=== PATIENT | female | born 1935 | race Caucasian/White ===

== ENCOUNTER 2016-09-18 19:57 | Emergency (ER) | payer BC ==
[2016-09-18 20:03] VITALS: BP 197/100; PULSE 81; TEMP 97.8; BMI 30.1
--- NOTE | 2016-09-18 21:13 | PDOC ---
History of Present Illness <Carmina Nash - Last Filed: 09/18/16 21:16> <Magda Archibald - Last Filed: 09/18/16 23:00> - General Chief Complaint: Chest Pain Stated Complaint: CHEST - History of Present Illness Initial Comments: 09/18/16 22:57 Patient is an 81 year old female with significant medical hx of HTN and cardiac catheterization 10 years ago with some arteriosclerotic disease who is presenting to the ED with intermittent left sided chest pain for a week. Her chest pain is non-radiating and not associated with shortness of breath. The patient describes her pain as annoying; she states that it is not a pressure. Denies diaphoresis, dyspnea, nausea, vomiting, headache, fever, chills. The patient recently received an echocardiogram that was found WNL. Social Hx: Tobacco use for 59 years, quit 4 years ago. PMD: Chris Jacobsen MD (Magda Archibald) Past History - Past Medical History Cardiac Disorders: Yes HTN: Yes Hypercholesterolemia: Yes - Surgical History Abdominal Surgery: Yes (hernia) - Psycho/Social/Smoking Cessation Hx Suicidal Ideation: No Smoking History: Former smoker Have you smoked in the past 12 months: No If you are a former smoker, when did you quit?: 2006 Information on smoking cessation initiated: No <Carmina Nash - Last Filed: 09/18/16 21:16> <Magda Archibald - Last Filed: 09/18/16 23:00> - Past Medical History Allergies/Adverse Reactions: Allergies Allergy/AdvReac Type Severity Reaction Status Date / Time No Known Allergies Allergy Verified 09/18/16 20:03 Review of Systems <Jordan Nashalexia Tinoco - Last Filed: 09/18/16 21:16> <Magda Archibald - Last Filed: 09/18/16 23:00> - Review of Systems Comments:: 09/18/16 22:59 CONSTITUTIONAL: Absent: fever, chills, diaphoresis, generalized weakness, malaise, loss of appetite HEENT: Absent: rhinorrhea, nasal congestion, throat pain, throat swelling, difficulty swallowing, mouth swelling, ear pain, eye pain, visual changes CARDIOVASCULAR: Present: chest pain Absent: syncope, palpitations, irregular heart rate, lightheadedness, peripheral edema RESPIRATORY: Absent: cough, shortness of breath, dyspnea with exertion, orthopnea, wheezing, stridor, hemoptysis GASTROINTESTINAL: Absent: abdominal pain, abdominal distension, nausea, vomiting, diarrhea, constipation, melena, hematochezia GENITOURINARY: Absent: dysuria, frequency, urgency, hesitancy, hematuria, flank pain, genital pain MUSCULOSKELETAL: Absent: myalgia, arthralgia, joint swelling SKIN: Absent: rash, itching, pallor HEMATOLOGIC/IMMUNOLOGIC: Absent: easy bleeding, easy bruising, lymphadenopathy, frequent infections ENDOCRINE: Absent: unexplained weight gain, unexplained weight loss, heat intolerance, cold intolerance NEUROLOGIC: Absent: headache, focal weakness or paresthesia, dizziness, unsteady gait, seizure, mental status changes, bladder or bowel incontinence. PSYCHIATRIC: Absent: anxiety, depression, suicidal or homicidal ideation, hallucinations (Magda Archibald) *Physical Exam <Carmina aNsh - Last Filed: 09/18/16 21:16> <Magda Archibald - Last Filed: 09/18/16 23:00> - Vital Signs Last Vital Signs Temp Pulse Resp BP Pulse Ox 97.8 F 81 18 197/100 98 09/18/16 19:59 09/18/16 19:59 09/18/16 19:59 09/18/16 19:59 09/18/16 19:59 - Physical Exam Comments: 09/18/16 22:59 GENERAL: Well developed, well nourished. Awake and alert. No acute distress. HEENT: Normocephalic, atraumatic. PERRLA, EOMI. No conjunctival pallor. Sclera are non- icteric. Moist mucous membranes. Oropharynx is clear. NECK: Supple. Full ROM. No JVD. Carotid pulses 2+ and symmetric, without bruits. No thyromegaly. No lymphadenopathy. CARDIOVASCULAR: Regular rate and rhythm. No murmurs, rubs, or gallops. Distal pulses are 2+ and symmetric. PULMONARY: No evidence of respiratory distress. Lungs clear to auscultation bilaterally. No wheezing, rales or rhonchi. ABDOMINAL: Protuberant. Soft. Non-tender. Non-distended. No rebound or guarding. No organomegaly. Normoactive bowel sounds. MUSCULOSKELETAL: Normal range of motion at all joints. No bony deformities or tenderness. No CVA tenderness. EXTREMITIES: Mild pedal edema. No cyanosis. No clubbing. No calf tenderness. SKIN: Warm and dry. Normal capillary refill. No rashes. No jaundice. NEUROLOGICAL: Alert, awake, appropriate. Cranial nerves 2-12 intact. Normal speech. PSYCHIATRIC: Cooperative. Good eye contact. Appropriate mood and affect. (Magda Archibald) ED Treatment Course - LABORATORY CBC & Chemistry Diagram: 09/18/16 21:40 09/18/16 21:40 <Magda Archibald - Last Filed: 09/18/16 23:00> - ADDITIONAL ORDERS Additional order review: Laboratory Results 09/18/16 09/18/16 21:40 21:40 Sodium 145 Potassium 4.1 Chloride 107 Carbon Dioxide 31 Anion Gap 7 L BUN 15 Creatinine 0.5 L Creat Clearance w eGFR > 60 Random Glucose 82 Calcium 9.0 Total Bilirubin 0.4 AST 7 L ALT 12 Alkaline Phosphatase 97 Creatine Kinase 59 Troponin I < 0.02 B-Natriuretic Peptide 213.48 Total Protein 6.8 Albumin 3.8 09/18/16 21:40 RBC 4.51 MCV 84.0 MCHC 33.4 RDW 15.2 MPV 9.0 Neutrophils % 72.3 Lymphocytes % 18.2 Monocytes % 7.1 Eosinophils % 2.1 Basophils % 0.3 *DC/Admit/Observation/Transfer <Carmina Nash - Last Filed: 09/18/16 21:16> <Magda Archibald - Last Filed: 09/18/16 23:00> Diagnosis at time of Disposition: Chest pain Qualifiers: Chest pain type: unspecified Qualified Code(s): R07.9 - Chest pain, unspecified - Discharge Dispostion Disposition: LEFT BEFORE MED EVAL, [facility] Condition at time of disposition: Stable - Referrals Referrals: Mars Cardona MD [Primary Care Provider] - - Patient Instructions Printed Discharge Instructions: DI for Atypical Chest Pain Additional Instructions: Dr Cardona will take you to [facility] - Attestations Scribe Attestion: 09/18/16 23:00 Documentation prepared by Magda Archibald, acting as medical art therapist for Carmina Nash MD. (Magda Archibald)
[2016-09-18] MEDS ORDERED: ASPIRIN 81 MG CHEWABLE TABLETS PO ONE (21:19)
[2016-09-18] MEDS ORDERED: METOPROLOL SUCCINATE 25 MG TAB.SR.24H (FP) PO ONE (21:20)
[2016-09-18] MEDS ORDERED: ASPIRIN 81 MG CHEWABLE TABLETS ONE (21:21)
[2016-09-18] MEDS ORDERED: METOPROLOL TARTRATE 25 MG TABLET (FP) ONE (21:21)
[2016-09-18 21:57] LABS: BASOPHIL 0.3 % (0-2.0); EOSINOPHIL 2.1 % (0-4.5); MCH 28.1 pg (25.7-33.7); MCHC 33.4 g/dl (32.0-36.0); NEUTROPHILS 72.3 % (42.8-82.8); PLATELET COUNT 242 K/MM3 (134-434); RDW 15.2 % (11.6-15.6); WHITE BLOOD COUNT 7.2 K/mm3 (4.0-10.0)
[2016-09-18 22:19] LABS: ALBUMIN 3.8 g/dl (3.4-5.0); ANION GAP 7 (8-16); BILIRUBIN,TOTAL 0.4 mg/dL (0.2-1.0); CO2 31 mmol/L (21-32); CREATININE 0.5 mg/dL (0.55-1.02); GLUCOSE,RANDOM 82 mg/dL (74-106); SGOT/AST 7 U/L (15-37); SGPT/ALT 12 U/L (12-78); TOT PROT 6.8 g/dl (6.4-8.2)
[2016-09-18 22:23] LABS: ALK PHOS 97 U/L (45-117); TROPONIN I < 0.02 ng/ml (0.00-0.05)
--- NOTE | 2016-09-26 17:26 | EKG ---
Test Reason : Blood Pressure : / mmHG Vent. Rate : 066 BPM Atrial Rate : 066 BPM P-R Int : 146 ms QRS Dur : 148 ms QT Int : 418 ms P-R-T Axes : 041 -24 -01 degrees QTc Int : 438 ms NORMAL SINUS RHYTHM WITH SINUS ARRHYTHMIA RIGHT BUNDLE BRANCH BLOCK ANTEROSEPTAL INFARCT , AGE UNDETERMINED ABNORMAL ECG WHEN COMPARED WITH ECG OF 06-MAR-2005 14:46, RIGHT BUNDLE BRANCH BLOCK IS NOW PRESENT ANTEROSEPTAL INFARCT IS NOW PRESENT Confirmed by NELSON ARCOS MD ([id number]) on 09/26/2016 5:25:57 PM Referred By: Confirmed By:NELSON ARCOS MD
== END 2016-09-18 21:31 | disposition left against medical advice (07) ==
LOC: JER 19:57
DX: Z53.21 Procedure and treatment not carried out due to patient leaving prior to being seen by health care provider (principal)
CPT/HCPCS: 36415; 71020-TC; 80053; 82550; 83880; 84484; 85025; 93005; 93010; 99281-25

== ENCOUNTER 2019-01-05 17:05 | Inpatient (IN) | payer BC ==
--- NOTE | 2019-01-05 18:19 | PDOC ---
History of Present Illness - General Chief Complaint: Pain, Acute Stated Complaint: LEFT SHOULDER PAIN Time Seen by Provider: 01/05/19 18:04 - History of Present Illness Initial Comments: 01/05/19 18:10 83 yo F with h/o COPD, ASHD, Cardiac Catherization ( x 1 years ago), Diastolic CHF, HTN who p/w left sided chest pain. Patient reports 2 days of intermittent, left sided chest pain/discomfort with exertion and at rest. Pain non-pleuritic, radiating to left sided shoulder, and neck, resolving spontaneously after 15-20 minutes. Last occurrence of pain on arrival to ED, now resolved. No identifiable triggers, or alleviators. No other associated complaints. Reports intermittent palpitations x 2 years with exertion. Follows with cardiology Dr. Peterson. Per Dr. Peterson patient with h/o recurrent left sided chest pain of similar nature. Last cardiac cath x 1 year ago, with absent pathologic findings. EKg with chronic RBBB. Patient denies GARY, vision change, cough, wheezing, orthopena, PND, leg swelling /pain, N/V, F,C, SOB, urinary complaints, hematuria, BPR, abdominal pain, diarrhea, constipation, lightheadedness, weakness, sensory changes. PMHx: as noted above. Denies h/o MD, stent placement, CABG ROS: as noted SHx: Distant tobacco use. Denies Etoh, IVDA. Allergies: NKDA Past History - Past Medical History Allergies/Adverse Reactions: Allergies Allergy/AdvReac Type Severity Reaction Status Date / Time No Known Allergies Allergy Verified 01/05/19 17:17 Home Medications: Ambulatory Orders Amlodipine Besylate [Norvasc -] 5 mg PO DAILY 01/05/19 Aspirin [ASA -] 81 mg PO DAILY 01/05/19 Atorvastatin Calcium [Lipitor] 10 mg PO HS 01/05/19 Mirtazapine [Remeron -] 7.5 mg PO DAILY 01/05/19 Zolpidem Tartrate [Ambien] 10 mg PO HS 01/05/19 Cardiac Disorders: Yes (leaky valve) COPD: No HTN: Yes Hypercholesterolemia: Yes Psychiatric Problems: Yes (anxiety, depression) - Surgical History Abdominal Surgery: Yes (hernia) - Suicide/Smoking/Psychosocial Hx Smoking History: Former smoker Have you smoked in the past 12 months: No If you are a former smoker, when did you quit?: 2006 Information on smoking cessation initiated: No Review of Systems - Review of Systems Comments:: 01/05/19 18:24 GENERAL/CONSTITUTIONAL: No fever or chills. No weakness. HEAD, EYES, EARS, NOSE AND THROAT: No change in vision. No ear pain or discharge. No sore throat. CARDIOVASCULAR: + chest pain. absent shortness of breath RESPIRATORY: No cough, wheezing, or hemoptysis. GASTROINTESTINAL: No nausea, vomiting, diarrhea or constipation. GENITOURINARY: No dysuria, frequency, or change in urination. MUSCULOSKELETAL: No joint or muscle swelling or pain. No neck or back pain. SKIN: No rash NEUROLOGIC: No headache, vertigo, loss of consciousness, or change in strength/ sensation. ENDOCRINE: No increased thirst. No abnormal weight change HEMATOLOGIC/LYMPHATIC: No anemia, easy bleeding, or history of blood clots. ALLERGIC/IMMUNOLOGIC: No hives or skin allergy. *Physical Exam - Vital Signs Last Vital Signs Temp Pulse Resp BP Pulse Ox 97.3 F L 81 18 134/75 99 01/05/19 17:13 01/05/19 17:13 01/05/19 17:13 01/05/19 17:13 01/05/19 17:13 - Physical Exam Comments: 01/05/19 18:24 GENERAL: Awake, alert, and fully oriented, in no acute distress HEAD: No signs of trauma, normocephalic, atraumatic EYES: PERRLA, EOMI, sclera anicteric, conjunctiva clear ENT: Auricles normal inspection, hearing grossly normal, nares patent, oropharynx clear without exudates. Moist mucosa NECK: Normal ROM, supple, no lymphadenopathy, JVD, or masses LUNGS: No distress, speaks full sentences, clear to auscultation bilaterally HEART: Regular rate and rhythm, normal S1 and S2, no murmurs, rubs or gallops, peripheral pulses normal and equal bilaterally. ABDOMEN: Soft, nontender, normoactive bowel sounds. No guarding, no rebound. No masses EXTREMITIES : Normal inspection, Normal range of motion, no edema. No clubbing or cyanosis. NEUROLOGICAL: Cranial nerves II through XII grossly intact. Normal speech, normal gait, no focal sensorimotor deficits SKIN: Warm, Dry, normal turgor, no rashes or lesions noted Heart Score/ECG Review - History History: Moderately suspicious - Electrocardiogram EKG: Non specific repolarization disturbance - Age Age: >/= 65 - Risk Factors Risk Factors Heart Score: Yes Hx Hypercholesterolemia, Yes Hx Hypertension, Yes Smoking History, Yes Hx Obesity Based on the list above the patient has:: >/=3 risk factors or Hx atherosclerotic disease - Troponin Troponin: </= normal limit - Score Heart Score - Total: 6 ED Treatment Course - LABORATORY CBC & Chemistry Diagram: 01/05/19 18:42 01/05/19 18:42 - RADIOLOGY Radiology Studies Ordered: Category Date Time Status CHEST PA & LAT [RAD] Stat Radiology 01/05/19 18:07 Ordered Medical Decision Making - Medical Decision Making 01/05/19 18:19 83 yo F with h/o COPD, ASHD, Cardiac Catherization ( x 1 years ago), Diastolic CHF, HTN who p/w 2 days of non-pleuritic, intermittent, left sided chest pain/ discomfort with exertion and at rest. Vitals wnl, AF, A&Ox3. Physical exam unremarkable. ACS/MD r/o. Will assess for cardiac dysarrythmias, pleural effusion, electrolyte abnml, metabolic and toxic derangements, acid-base disturbances, infection. Given nature of patient chest pain, and risk factors, patient likely need admission for high risk chest pain. Ed Course: EKG: NSR with absent CORY, STD. + RBBB. TWI leads V1-V5, III Nml interval duration and axis. Nml R wave progression. Absent Q waves. 01/05/19 18:27 Heart score 6 01/05/19 18:48 Pt. endorsed to night team Dr. Gutierres. Pending labs, cxr. Plan is to admit tele. *DC/Admit/Observation/Transfer Diagnosis at time of Disposition: Chest pain at rest - Discharge Dispostion Condition at time of disposition: Stable Decision to Admit order: Yes - Referrals Referrals: Mars Cardona MD [Primary Care Provider] - - Patient Instructions - Post Discharge Activity
--- NOTE | 2019-01-05 18:54 | PDOC ---
Documentation entered by Nory Browne SCRIBE, acting as scribe for Rohith Santana MD. Rohith Santana MD: This documentation has been prepared by the ryanePavan Aiswarya, SCRIBE, under my direction and personally reviewed by me in its entirety. I confirm that the documentation accurately reflects all work, treatment, procedures, and medical decision making performed by me. Attending Attestation - Resident Resident Name: YonasJose L - ED Attending Attestation I have performed the following: I have examined & evaluated the patient, The case was reviewed & discussed with the resident, I agree w/resident's findings & plan, Exceptions are as noted - HPI HPI: 01/05/19 18:53 83-year-old female with history of COPD, ASHD, cardiac catheterization, heart failure, hypertension presents with left shoulder pain. The patient states that 2 days ago she started feeling is reproducible left shoulder pain rating down to her left arm and left neck. Worsened with movements but denies midsternal chest pressure or shortness of breath. Patient states that she's been started to carry a heavy bag on her left shoulder. Denies recent illnesses, fevers, chills, cough. - Physicial Exam PE: 01/05/19 18:26 GENERAL: Awake, alert, and fully oriented, in no acute distress HEAD: No signs of trauma EYES: EOMI, sclera anicteric, conjunctiva clear ENT: Auricles normal inspection, hearing grossly normal, nares patent, Moist mucosa NECK: Normal ROM, supple, LUNGS: Breath sounds equal, clear to auscultation bilaterally. No wheezes, and no crackles HEART: Regular rate and rhythm, normal S1 and S2, no murmurs, rubs or gallops Reproducible left shoulder pain and left upper chest to palpation. TTP left upper neck. 2+ radial pulse. Sensation and strength intact throughout median/ radian/ulnar/deltoid nerve distribution. ABDOMEN: Soft, nontender, No guarding, no rebound. No masses EXTREMITIES: Normal range of motion, no edema. No clubbing or cyanosis. No cords, erythema, or tenderness NEUROLOGICAL: Cranial nerves II through XII grossly intact. Normal speech, normal gait SKIN: Warm, Dry, normal turgor, no rashes or lesions noted. - Medical Decision Making 01/05/19 18:53 Vital Signs Temp Pulse Resp BP Pulse Ox 97.3 F L 81 18 134/75 99 01/05/19 17:13 01/05/19 17:13 01/05/19 17:13 01/05/19 17:13 01/05/19 17:13 I suspect that the patient may potentially have muscle skeletal shoulder pain from carrying a bag. However, the patient is high risk given her significant cardiac history for cardiac etiology. We will obtain a troponin, chest x-ray and labs. Obtain left shoulder x-ray the left shoulder pain. The patient initially did not want to stay in the hospital but after discussing the case with the patient, patient's family, patient's career technical education teacher, Dr. Jacobsen, given her symptoms, the best choice at this time would be to admit her for telemetry and serial troponins. Dr. Jacobsen will staff the case as a group segment consultant. 01/05/19 19:27 Chest xray reviewed by me, pending official radiology read. No acute findings. Left shoulder xray reviewed by me, pending official radiology read. No fracture or dislocation. Noted to have arthritis. CBC, BMP 01/05/19 18:42 01/05/19 18:42 CMP Sodium 141 mmol/L (136-145) 01/05/19 18:42 Potassium 4.3 mmol/L (3.5-5.1) 01/05/19 18:42 Chloride 108 mmol/L (98-107) H 01/05/19 18:42 Carbon Dioxide 28 mmol/L (21-32) 01/05/19 18:42 Anion Gap 5 MMOL/L (8-16) L 01/05/19 18:42 BUN 10.6 mg/dL (7-18) 01/05/19 18:42 Creatinine 0.8 mg/dL (0.55-1.3) 01/05/19 18:42 Est GFR (CKD-EPI)AfAm 77.92 01/05/19 18:42 Est GFR (CKD-EPI)NonAf 67.23 01/05/19 18:42 Random Glucose 102 mg/dL (74-106) 01/05/19 18:42 Calcium 8.4 mg/dL (8.5-10.1) L 01/05/19 18:42 Total Bilirubin 0.3 mg/dL (0.2-1) 01/05/19 18:42 AST 18 U/L (15-37) 01/05/19 18:42 ALT 15 U/L (13-61) 01/05/19 18:42 Alkaline Phosphatase 87 U/L (45-117) 01/05/19 18:42 Creatine Kinase 68 U/L (26-192) 01/05/19 18:42 Troponin I < 0.02 ng/ml (0.00-0.05) 01/05/19 18:42 Total Protein 6.9 g/dl (6.4-8.2) 01/05/19 18:42 Albumin 3.7 g/dl (3.4-5.0) 01/05/19 18:[address] Li. Pt is admitted to telemetry. Heart Score/ECG Review #1 ECG reviewed & interpreted by me at: 17:15 01/05/19 18:26 NSR 77, RBBB, Q wave V1, no std/gus, left axis deviation, QTC 452 msec
[2019-01-05 18:58] LABS: BASO % 1.1 % (0-2.0); HEMATOCRIT 39.3 % (32.4-45.2); HEMOGLOBIN 13.1 GM/dL (10.7-15.3); LYMPH % 20.7 % (8-40); MCH 28.8 pg (25.7-33.7); MCHC 33.4 g/dl (32.0-36.0); MEAN CELL VOLUME 86.2 fl (80-96); MEAN PLT VOLUME 8.7 fl (7.5-11.1); MONO % 7.2 % (3.8-10.2); RBC 4.55 M/mm3 (3.60-5.2); RDW 14.4 % (11.6-15.6); WHITE BLOOD COUNT 7.3 K/mm3 (4.0-10.0)
--- NOTE | 2019-01-05 19:06 | PDOC ---
*Physical Exam - Vital Signs Last Vital Signs Temp Pulse Resp BP Pulse Ox 97.3 F L 81 18 134/75 99 01/05/19 17:13 01/05/19 17:13 01/05/19 17:13 01/05/19 17:13 01/05/19 17:13 ED Treatment Course - LABORATORY CBC & Chemistry Diagram: 01/05/19 18:42 01/05/19 18:42 Medical Decision Making - Medical Decision Making 01/05/19 19:01 Ms. Dior is an 83 yo female w/ pmh of COPD, HTN, Cardiac Cath 1 year ago, Diastolic CHF, and atherosclerotic heart disease who presents for evaluation of 2 day history of L sided chest pain/discomfort not relieved by rest. Patient currently pending cardiac workup for admit. 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 01/05/19 19:21 Patient EKG significant for old RBBB only. Patient admitted for further evaluation and cardiology consult in the AM. 01/05/19 19:38 Patient labs grossly wnl. No acute intervention required at this time. Laboratory Results - last 24 hr 01/05/19 01/05/19 18:42 18:42 WBC 7.3 RBC 4.55 Hgb 13.1 Hct 39.3 MCV 86.2 MCH 28.8 MCHC 33.4 RDW 14.4 Plt Count 277 MPV 8.7 Absolute Neuts (auto) 5.0 Neutrophils % 69.0 Lymphocytes % 20.7 Monocytes % 7.2 Eosinophils % 2.0 Basophils % 1.1 D Nucleated RBC % 0 Sodium 141 Potassium 4.3 Chloride 108 H Carbon Dioxide 28 Anion Gap 5 L BUN 10.6 Creatinine 0.8 Est GFR (CKD-EPI)AfAm 77.92 Est GFR (CKD-EPI)NonAf 67.23 Random Glucose 102 Calcium 8.4 L Total Bilirubin 0.3 AST 18 ALT 15 Alkaline Phosphatase 87 Creatine Kinase 68 Troponin I < 0.02 Total Protein 6.9 Albumin 3.7 *DC/Admit/Observation/Transfer Diagnosis at time of Disposition: Chest pain at rest - Discharge Dispostion Condition at time of disposition: Stable - Referrals Referrals: Mars Cardona MD [Primary Care Provider] - - Patient Instructions - Post Discharge Activity
[2019-01-05 19:07] LABS: PLATELET COUNT 277 K/MM3 (134-434)
[2019-01-05 19:25] LABS: ALBUMIN 3.7 g/dl (3.4-5.0); ALK PHOS 87 U/L (45-117); ANION GAP 5 MMOL/L (8-16); BILIRUBIN,TOTAL 0.3 mg/dL (0.2-1); BLOOD UREA NITROGEN 10.6 mg/dL (7-18); CALCIUM 8.4 mg/dL (8.5-10.1); CHLORIDE 108 mmol/L (98-107); CO2 28 mmol/L (21-32); CREATININE 0.8 mg/dL (0.55-1.3); GLUCOSE,RANDOM 102 mg/dL (74-106); POTASSIUM 4.3 mmol/L (3.5-5.1); SGOT/AST 18 U/L (15-37); SGPT/ALT 15 U/L (13-61); SODIUM 141 mmol/L (136-145); TOT PROT 6.9 g/dl (6.4-8.2)
[2019-01-05] MEDS ORDERED: ACETAMINOPHEN 1000 MG/100 ML VIAL (NON FORMULARY) IVPB ONE (19:29)
[2019-01-05] MEDS ORDERED: ASPIRIN 81 MG CHEWABLE TABLETS PO SCH (19:30)
[2019-01-05] MEDS ORDERED: ASPIRIN 81 MG CHEWABLE TABLETS ONE (19:50)
[2019-01-05] MEDS ORDERED: ACETAMINOPHEN INJECTION 100 ML IVPB ONE (19:50)
[2019-01-05] MEDS ORDERED: ZOLPIDEM TARTRATE 5 MG TABLET PO PRN (22:00)
[2019-01-05] MEDS ORDERED: ATORVASTATIN CA 10 MG TABLET (FP) PO SCH (22:00)
[2019-01-06 01:55] VITALS: BMI 29.8
--- NOTE | 2019-01-06 07:24 | CON.CARD ---
Consult Consult Specialty:: Cardiology Referred by:: Dr. Toni Santana (ER), patient request Reason for Consultation:: chest pain - History of Present Illness Chief Complaint: chest pain History of Present Illness: 83F w/ HTN, chronic diastolic dysfx and mild non-obstx CAD on cath 2017 at [facility]. Presents to ER with Left neck, elbow pain radiating to left hand- constant for several days. Not exertional. No worsened SOB or palpitations. No edema on CHF sx No N/V or diaphoresis. No fever, chills or cough. No other Neuro sx ECG: NSR w/ her chronic RBBB, no acute changes. TnI negative x 1 Should be noted that she has chronic DIETRICH on the basis of diastolic dysfx ( secondary to HTN) and mild COPD and chronic variable chest pain/tightness complaints over the years which have been evaluated and fortunately no obstructive CAD has been found. There is a component of chronic anxiety as well. She was seen and examined on 4S this AM, comfortable with no chest pain. Reports that her discomfort was always left sided neck pain with radiation down the left shoulder and to elbow. Reports it is "much better this morning." - History Source History Provided By: Patient - Past Medical History Cardio/Vascular: Yes: CHF (chronic diastolic), HTN, Hyperlipdemia Pulmonary: No: Asthma, Bronchitis, Cancer, COPD, O2 Dependent, Pneumonia, Previously Intubated, Pulmonary Embolus, Pulmonary Fibrosis, Sleep Apnea, Other Gastrointestinal: No: Ascites, Cancer, Constipation, Crohn's Disease, Diverticulitis, Diverticulosis, Esophageal Varices, Gastritis, GERD, GI Bleed, Hemorrhoids, Hiatal Hernia, Inflamatory Bowel Disease, Irritable Bowel Disease, Pancreatitis, Peptic Ulcer Disease, Ulcerative Colitis, Other Hepatobiliary: No: Cirrhosis, Cholelithiasis, Cholecystitis, Choledocholithiasis , Hepatitis A, Hepatitis B, Hepatitis C, Other Reproductive: No: Ectopic , Endometriosis, Fibroids, PID, Polycystic Ovary Syndrome, Postmenopausal, Other ...: No Infectious Disease: No: AIDS, C-Diff, Herpes Zoster, HIV, MRSA, STD's, Tuberculosis, VREF, Other Psych: Yes: Anxiety Musculoskeletal: No: Bursitis, Chronic low back pain, Hemiparesis, Hemiplegia, Osteoarthritis, Paraplegia, Other Rheumatology: No: Fibromyalgia, Gout, Lupus, Rheumatoid Arthritis, Sarcoidosis, Vasculitis, Other ENT: No: Allergic Rhinitis, Sinusitis, Other Endocrine: No: [place]'s Disease, [place]'s Disease, Diabetes Insipidus, Diabetes Mellitus, Hyperparathyroidism, Hyperthyroidism, Hypothyroidism, Osteopenia, SIADH, Other - Alcohol/Substance Use Hx Alcohol Use: No - Smoking History Smoking history: Former smoker Have you smoked in the past 12 months: No If you are a former smoker, when did you quit?: 2006 - Social History Usual Living Arrangement: Alone Place of : [facility] History of Recent Travel: No Home Medications - Allergies Allergies/Adverse Reactions: Allergies Allergy/AdvReac Type Severity Reaction Status Date / Time No Known Allergies Allergy Verified 01/05/19 17:17 - Home Medications Home Medications: Ambulatory Orders Amlodipine Besylate [Norvasc -] 5 mg PO DAILY 01/05/19 Aspirin [ASA -] 81 mg PO DAILY 01/05/19 Atorvastatin Calcium [Lipitor] 10 mg PO HS 01/05/19 Mirtazapine [Remeron -] 7.5 mg PO DAILY 01/05/19 Zolpidem Tartrate [Ambien] 10 mg PO HS 01/05/19 Family Disease History - Family Disease History Family History: Unremarkable (not pertinent to this presentation) Review of Systems Findings/Remarks: 83-year-old female with history of COPD, ASHD, cardiac catheterization, heart failure, hypertension presents with left shoulder pain. The patient states that 2 days ago she started feeling is reproducible left shoulder pain rating down to her left arm and left neck. Worsened with movements but denies midsternal chest pressure or shortness of breath. Patient states that she's been started to carry a heavy bag on her left shoulder. Denies recent illnesses, fevers, chills, cough. - Review of Systems Constitutional: reports: No Symptoms Eyes: reports: No Symptoms Neck: reports: Pain on Movement Cardiovascular: reports: No Symptoms Respiratory: reports: SOB on Exertion (chronic DIETRICH, not worse lately) Gastrointestinal: reports: No Symptoms Genitourinary: reports: No Symptoms Breasts: reports: No Symptoms Reported Musculoskeletal: reports: Joint Pain (left shoulder and elbow) Neurological: reports: No Symptoms Endocrine: reports: No Symptoms Hematology/Lymphatic: reports: No Symptoms Psychiatric: reports: No Symptoms - Risk Factors Known Risk Factors: Yes: Hypercholesterolemia, Hypertension Vital Signs: Vital Signs Temperature 97.8 F 01/06/19 06:20 Pulse Rate 69 01/06/19 06:20 Respiratory Rate 18 01/06/19 06:20 Blood Pressure 132/75 01/06/19 06:20 O2 Sat by Pulse Oximetry (%) 95 01/06/19 00:26 Constitutional: Yes: No Distress, Calm Eyes: Yes: Conjunctiva Clear, EOM Intact HENT: Yes: Atraumatic, Normocephalic Neck: Yes: Supple, Trachea Midline Respiratory: Yes: CTA Bilaterally Gastrointestinal: Yes: Soft Cardiovascular: Yes: Regular Rate and Rhythm JVD: No Carotid Bruit: No PMI: Non-Displaced Heart Sounds: Yes: S1, S2 (RRR, no M/R/G) Edema: No Peripheral Pulses WNL: Yes Peripheral Pulses: 2+ Left Carotid, 2+ Right Carotid, 2+ Left Doralis Pedis, 2+ Right Dorsalis Pedis Neurological: Yes: Alert, Oriented ...Motor Strength: WNL - Other Data Labs, Other Data: CBC, BMP 01/05/19 18:42 01/05/19 18:42 Troponin, BNP 01/05/19 18:42 Troponin I < 0.02 Troponin, BNP 01/05/19 18:42 Troponin I < 0.02 NSR w/ chronic RBBB, no acute ST changes Echo: Pending Prior Cardiac Procedures: Cardiac Catheterization (2017: [facility]: non-obstx CAD Prior caths several years ago at [facility] also non-obstx) Imaging - Results Chest X-ray: Image Reviewed EKG: Image Reviewed Assessment/Plan IMP: 1. Suspected musculoskeletal left shoulder/arm pain secondary to arthritis and possible cervical disc disease 2. Chronic HTN, hypertensive disease with resultant diastolic dysfx 3. RBBB, unchanged 4. Mild COPD Symptoms constant for several days, atypical and more likely MSK. ECG stable w/ out acute change and initial TnI negative. REC: 1. Second cardiac enzyme this AM 2. Echo- rule out pericardial disease and measure the aortic root diameter ( current sx are not c/w pericarditis or aortic pathology, but while we wait for second enzyme can obtain echo also for EF assessment). 3. If second set enzymes negative, ok for d/c home with close outpatient f/u. Cath reports to be reviewed with further evaluation to completed as outpatient. Thank you. Will follow.
--- NOTE | 2019-01-06 09:35 | EKG ---
Test Reason : Blood Pressure : / mmHG Vent. Rate : 077 BPM Atrial Rate : 077 BPM P-R Int : 140 ms QRS Dur : 150 ms QT Int : 400 ms P-R-T Axes : 048 -27 007 degrees QTc Int : 452 ms NORMAL SINUS RHYTHM RIGHT BUNDLE BRANCH BLOCK SEPTAL INFARCT (CITED ON OR BEFORE 18-SEP-2016) ABNORMAL ECG WHEN COMPARED WITH ECG OF 18-SEP-2016 19:22, NO SIGNIFICANT CHANGE WAS FOUND Confirmed by JOSSELYN PICKARD, NELSON ([id number]) on 01/06/2019 9:35:16 AM Referred By: Confirmed By:NELSON ARCOS MD
[2019-01-06] MEDS ORDERED: MIRTAZAPINE 15 MG TABLET (FP) PO SCH (10:00)
[2019-01-06] MEDS ORDERED: amLODIPine BESYLATE 5 MG TABLET (FP) PO SCH (10:00)
[2019-01-06] MEDS ORDERED: ASPIRIN 81 MG CHEWABLE TABLETS PO SCH (10:00)
[2019-01-06] MEDS ORDERED: RAMIPRIL 5 MG CAPSULE (FP) PO SCH (11:15)
--- NOTE | 2019-01-06 12:45 | ECHO ---
Name: LULA ISIDRO Exam:Adult Echocardiogram Study Date: 01/06/2019 08:02 AM Age: 83 yrs Reason For Study: wide mediastinum Height: 63 in Weight: 168 lb BSA: 1.8 m2 MMode/2D Measurements & Calculations IVSd: 0.90 cm Ao root diam: 2.7 cm LVIDd: 4.1 cm LA dimension: 3.0 cm LVIDs: 2.6 cm LVPWd: 0.95 cm EDV(Teich): 75.9 ml LVOT diam: 1.9 cm ESV(Teich): 25.3 ml TAPSE: 2.0 cm RV S Edmundo: 12.4 cm/sec Doppler Measurements & Calculations MV E max edmundo: 59.2 cm/sec Ao V2 max: 201.7 cm/sec MV A max edmundo: 97.0 cm/sec Ao max P.3 mmHg MV E/A: 0.61 Ao V2 mean: 139.0 cm/sec MV dec time: 0.33 sec Ao mean P.4 mmHg Ao V2 VTI: 44.6 cm FABBY(I,D): 1.6 cm2 FABBY(V,D): 1.7 cm2 LV V1 max P.1 mmHg SV(LVOT): 71.5 ml LV V1 mean P.3 mmHg LV V1 max: 123.8 cm/sec LV V1 mean: 84.6 cm/sec LV V1 VTI: 25.6 cm TR max edmundo: 259.3 cm/sec Med Peak E' Edmundo: 5.5 cm/sec TR max P.9 mmHg Med E/e': 10.7 Lat Peak E' Edmundo: 8.3 cm/sec Lat E/e': 7.2 Procedure A complete two-dimensional transthoracic echocardiogram was performed (2D, M-mode, Doppler and color flow Doppler). Left Ventricle The left ventricle is normal in size. Left ventricular systolic function is normal. Ejection Fraction = 65- 70%. Grade I diastolic dysfunction, (abnormal relaxation pattern). Ratio E/E'= 11. No regional wall m otion abnormalities noted. Right Ventricle The right ventricle is normal size. The right ventricular systolic function is normal. RV systolic TD I is 12 cm/s. Atria The left atrial size is normal. Right atrial size is normal. Mitral Valve The mitral valve is normal in structure and function. There is no mitral regurgitation noted. Tricuspid Valve The tricuspid valve is normal in structure and function. There is mild tricuspid regurgitation. Pulmo nary artery systolic pressure is at least 30 mmHg assuming RA pressure of 3 mmHg. Aortic Valve There is mild aortic sclerosis.;. Mild aortic regurgitation. Pulmonic Valve The pulmonic valve is not well visualized. Trace to mild pulmonic valvular regurgitation. Great Vessels The aortic root is normal size. Pericardium/Pleura There is no pericardial effusion. Interpretation Summary The left ventricle is normal in size. Left ventricular systolic function is normal. No regional wall motion abnormalities noted. Ejection Fraction = 65-70%. Grade I diastolic dysfunction, (abnormal relaxation pattern). Ratio E/E'= 11 The right ventricular systolic function is normal. The left atrial size is normal. Right atrial size is normal. There is mild tricuspid regurgitation. Pulmonary artery systolic pressure is at least 30 mmHg assuming RA pressure of 3 mmHg There is mild aortic sclerosis. Mild aortic regurgitation. Trace to mild pulmonic valvular regurgitation. There is no pericardial effusion. Previous study is not available for comparison Tone Casanova MD 01/06/2019 12:45 PM
--- NOTE | 2019-01-06 17:59 | HP ---
Admitting History and Physical - Admission History of Present Illness: Pt is a 83 y/o female w/ PMH significant for COPD, ASHD(Cardiac Catherization x 1 year ago), Diastolic CHF, and HTN. Pt presented to the ER w/ left sided chest pain. Patient reports 2 days of intermittent, left sided chest pain/ discomfort with exertion and at rest. Pain non-pleuritic, radiating to left sided shoulder, and neck, resolving spontaneously after 15-20 minutes. No identifiable triggers, or alleviators. No other associated complaints. Reports intermittent palpitations x 2 years with exertion. - Past Medical History Cardiovascular: Yes: Aortic Stenosis, CHF (chronic diastolic), HTN, Hyperlipdemia Pulmonary: Yes: COPD Gastrointestinal: Yes: GERD ...: No Psych: Yes: Anxiety - Smoking History Smoking history: Former smoker Have you smoked in the past 12 months: No If you are a former smoker, when did you quit?: 2006 - Alcohol/Substance Use Hx Alcohol Use: No - Social History History of Recent Travel: No Home Medications - Allergies Allergies/Adverse Reactions: Allergies Allergy/AdvReac Type Severity Reaction Status Date / Time No Known Allergies Allergy Verified 01/05/19 17:17 - Home Medications Home Medications: Ambulatory Orders Amlodipine Besylate [Norvasc -] 5 mg PO DAILY 01/05/19 Aspirin [ASA -] 81 mg PO DAILY 01/05/19 Atorvastatin Calcium [Lipitor] 10 mg PO HS 01/05/19 Mirtazapine [Remeron -] 7.5 mg PO DAILY 01/05/19 Zolpidem Tartrate [Ambien] 10 mg PO HS 01/05/19 Aspirin [ASA -] 162 mg PO DAILY tab.chew 01/06/19 Ramipril [Altace] 5 mg PO DAILY capsule 01/06/19 Family Disease History - Family Disease History Family History: Unremarkable Review of Systems - Review of Systems Constitutional: reports: No Symptoms Eyes: reports: No Symptoms HENT: reports: No Symptoms Neck: reports: No Symptoms Cardiovascular: reports: Chest Pain Respiratory: reports: No Symptoms Gastrointestinal: reports: No Symptoms Genitourinary: reports: No Symptoms Physical Examination Vital Signs: Vital Signs Temperature 97.8 F 01/06/19 14:39 Pulse Rate 73 01/06/19 14:39 Respiratory Rate 16 01/06/19 14:39 Blood Pressure 134/74 01/06/19 14:39 O2 Sat by Pulse Oximetry (%) 95 01/06/19 08:36 Constitutional: Yes: No Distress Eyes: Yes: WNL HENT: Yes: WNL Neck: Yes: WNL, Supple Cardiovascular: Yes: WNL, Regular Rate and Rhythm Respiratory: Yes: WNL, Regular, CTA Bilaterally Gastrointestinal: Yes: WNL, Normal Bowel Sounds, Soft Musculoskeletal: Yes: WNL Extremities: Yes: WNL Edema: No Neurological: Yes: WNL, Alert, Oriented ...Motor Strength: WNL Labs: CBC, BMP 01/05/19 18:42 01/05/19 18:42 Problem List - Problems (1) Chest pain Assessment/Plan: R/O ACS Serial cpk/troponin Check Echo Cardio consult Code(s): R07.9 - CHEST PAIN, UNSPECIFIED Qualifiers: Chest pain type: unspecified Qualified Code(s): R07.9 - Chest pain, unspecified (2) HTN (hypertension) Code(s): I10 - ESSENTIAL (PRIMARY) HYPERTENSION (3) Anxiety Code(s): F41.9 - ANXIETY DISORDER, UNSPECIFIED (4) COPD (chronic obstructive pulmonary disease) Code(s): J44.9 - CHRONIC OBSTRUCTIVE PULMONARY DISEASE, UNSPECIFIED (5) GERD (gastroesophageal reflux disease) Code(s): K21.9 - GASTRO-ESOPHAGEAL REFLUX DISEASE WITHOUT ESOPHAGITIS
[2019-01-06 18:12] VITALS: BP 156/78; PULSE 75; TEMP 97.4
== END 2019-01-06 18:37 | disposition home or self-care (01) | DRG 554 ==
LOC: JER 17:05 → JERBED 18:49 → OBSVTOIN 21:34 → J4S 21:50
PROVIDERS: ADMIT Internal Medicine; ATTEND Internal Medicine
DX: M19.012 Primary osteoarthritis, left shoulder (principal); I50.32 Chronic diastolic (congestive) heart failure; J44.9 Chronic obstructive pulmonary disease, unspecified; I25.10 Atherosclerotic heart disease of native coronary artery without angina pectoris; I45.10 Unspecified right bundle-branch block; I11.0 Hypertensive heart disease with heart failure; M50.90 Cervical disc disorder, unspecified, unspecified cervical region; R07.9 Chest pain, unspecified; F41.9 Anxiety disorder, unspecified; K21.9 Gastro-esophageal reflux disease without esophagitis
CPT/HCPCS: 36415; 71046-TC-FY; 73030-TC-LT-FY; 80053; 82550; 84484; 85025; 93005; 93010; 93306-TC; 99285-25; G0378; J0131

== ENCOUNTER 2019-09-01 14:24 | Inpatient (IN) | payer BC ==
[2019-09-01 14:45] VITALS: BMI 29.2
[2019-09-01] MEDS ORDERED: METOCLOPRAMIDE HCL INJECTION 10 MG/2 ML VIAL IVPUSH ONE (15:05)
[2019-09-01] MEDS ORDERED: SODIUM CHLORIDE 0.9% 1000 ML INFUS.BAG IV ONE (15:05)
[2019-09-01] MEDS ORDERED: hydrOXYzine PAMOATE 25 MG CAPSULE (FP) PO ONE ×2 (15:05→15:25)
[2019-09-01] MEDS ORDERED: ACETAMINOPHEN 1000 MG/100 ML VIAL (NON FORMULARY) IVPB ONE (15:05)
[2019-09-01] MEDS ORDERED: FAMOTIDINE 20 MG/50 ML IVPB 20 MG/50 ML MG IVPB ONE ×2 (15:05→15:25)
[2019-09-01] MEDS ORDERED: ACETAMINOPHEN INJECTION 100 ML IVPB ONE (15:25)
[2019-09-01] MEDS ORDERED: METOCLOPRAMIDE HCL INJECTION 10 MG/2 ML VIAL ONE (15:25)
--- NOTE | 2019-09-01 15:50 | PDOC ---
Documentation entered by Nehemias Conrad SCRIBE, acting as scribe for Laila Jain DO. Laila Jain DO: This documentation has been prepared by the Anamaria trejo Nirvannie, SCRIBE, under my direction and personally reviewed by me in its entirety. I confirm that the documentation accurately reflects all work, treatment, procedures, and medical decision making performed by me. History of Present Illness - General Chief Complaint: Headache Stated Complaint: HEADACHE, DRY HEAVES, FEELING "OFF" Time Seen by Provider: 09/01/19 14:28 History Source: Patient Exam Limitations: No Limitations - History of Present Illness Initial Comments: 09/01/19 16:17 The patient is a year old female, with a significant past medical history of myasthenia gravis, chronic sinusitis, anxiety, depression, COPD, ASHD (s/p cardiac catheterization), heart failure, hypertension, who presents to the emergency department with 1 week of blurred vision, chills, nausea, dizziness, cough, and decreased PO intake. As per patient, she has been experiencing blurred vision for the past 20 years which has since worsened over the course of the past week with increased anxiety attacks. She notes that she has been evaluated in the past by optometry, ENT, and neurology for her symptoms. She notes Dr. Cerna recently diagnosed her with myasthenia gravis again and placed her on Mestinon (1 week) and Viibryd (3 days). She notes she was supposed to have an outpatient MRI today but, secondary to her symptoms she reported to the ED for further evaluation. She denies recent dysuria, frequency, urgency or hematuria. She denies recent chest pain or shortness of breath. Allergies: NKDA Past surgical history: Cardiac catheterization. Cataract surgery. Social history: Nonsmoker. Denies EtOH use and recreational drug use. Primary Care Physician: Dr. Joshua Cardona. Past History - Past Medical History Allergies/Adverse Reactions: Allergies Allergy/AdvReac Type Severity Reaction Status Date / Time No Known Allergies Allergy Verified 09/01/19 13:07 Home Medications: Ambulatory Orders Amlodipine Besylate [Norvasc -] 5 mg PO DAILY 01/05/19 Aspirin [ASA -] 81 mg PO DAILY 01/05/19 Atorvastatin Calcium [Lipitor] 10 mg PO DAILY 01/05/19 Zolpidem Tartrate [Ambien] 5 mg PO HS 01/05/19 Ramipril [Altace] 5 mg PO DAILY capsule 01/06/19 Dexlansoprazole [Dexilant] 60 mg PO DAILY 09/01/19 Pyridostigmine [place] [Mestinon] 60 mg PO DAILY 09/01/19 Quetiapine Fumarate [Seroquel -] 50 mg PO HS 09/01/19 clonazePAM [Klonopin -] 0.5 mg PO BID 09/01/19 Cardiac Disorders: Yes (leaky valve) COPD: No CHF: Yes HTN: Yes Hypercholesterolemia: Yes Psychiatric Problems: Yes (anxiety, depression) - Surgical History Abdominal Surgery: Yes (hernia) - Psycho Social/Smoking Cessation Hx Smoking History: Former smoker Have you smoked in the past 12 months: No If you are a former smoker, when did you quit?: 2006 Hx Alcohol Use: No Drug/Substance Use Hx: No Substance Use Type: None Hx Substance Use Treatment: No Review of Systems - Review of Systems Able to Perform ROS?: Yes Comments:: 09/01/19 16:17 GENERAL/CONSTITUTIONAL: +Chills. No fever. No weakness. HEAD, EYES, EARS, NOSE AND THROAT: +Blurred vision. No ear pain or discharge. No sore throat. GASTROINTESTINAL: +Nausea. +Decreased PO intake. No vomiting, diarrhea or constipation. GENITOURINARY: No dysuria, frequency, or change in urination. CARDIOVASCULAR: No chest pain or shortness of breath. RESPIRATORY: +Cough. No wheezing, or hemoptysis. MUSCULOSKELETAL: No joint or muscle swelling or pain. No neck or back pain. SKIN: No rash NEUROLOGIC: No headache, vertigo, loss of consciousness, or change in strength/ sensation. ENDOCRINE: No increased thirst. No abnormal weight change. HEMATOLOGIC/LYMPHATIC: No anemia, easy bleeding, or history of blood clots. ALLERGIC/IMMUNOLOGIC: No hives or skin allergy. All Other Systems: Reviewed and Negative *Physical Exam - Vital Signs Last Vital Signs Temp Pulse Resp BP Pulse Ox 98.1 F 87 18 130/72 95 09/01/19 14:26 09/01/19 14:26 09/01/19 14:26 09/01/19 14:26 09/01/19 14:26 - Physical Exam 09/01/19 16:17 Constitutional: Awake, alert, oriented. No acute distress. Head: Normocephalic. Atraumatic Eyes: Right eye: +Surgically fixed pupil. Left eye: PERRL. EOMI. Conjunctivae are not pale. ENT: + Mucous membranes are dry. Posterior pharynx without exudates or erythema. Uvula midline. Neck: Supple. Full ROM. No lymphadenopathy. Cardiovascular: Regular rate. Regular rhythm. S1, S2 regular. Distal pulses are 2+ and symmetric. Pulmonary/Chest: No evidence of respiratory distress. Clear to auscultation bilaterally No wheezing, rales or rhonchi. Abdominal: Soft and non-distended. There is no tenderness. No rebound, guarding or rigidity. No organomegaly. No palpable masses. Good bowel sounds. Back: No CVA tenderness. Musculoskeletal: No edema. No cyanosis. No clubbing. Full range of motion in all extremities. No calf tenderness. Radial/pedal pulses are intact and 2+ bilaterally Skin: Skin is warm and dry. No petechiae. No purpura. Neurological: Alert and oriented to person, place, and time. Cranial nerves II -XII are grossly intact. Normal speech. Strength is grossly symmetric. No sensory deficits. Psychiatric: Good eye contact. Normal interaction, affect and behavior. Heart Score/ECG Review - ECG Intrepretation Comment:: 09/01/19 15:47 sinus at 67, rbbb, nl axis, no acute st/t wave findings, nonspecific t wave inversions III ED Treatment Course - LABORATORY CBC & Chemistry Diagram: 09/01/19 16:10 09/01/19 16:10 - RADIOLOGY Radiology Studies Ordered: Category Date Time Status HEAD CT WITHOUT CONTRAST [CT] Stat CT Scan 09/01/19 15:04 Taken CHEST PA & LAT [RAD] Stat Radiology 09/01/19 15:04 Taken Medical Decision Making - Medical Decision Making 09/01/19 15:47 a/p: 84yo female who was started on mestignon last week for MG by Dr. Cerna with multiple complaints -dry heaves, dizziness, cardona, eye pain and vision loss -has seen Neuro, ent, ophtho- ENT and ophtho state nothing is wrong -R eye prior sx pupil for cataract sx -pt states blurred vision -decreased po intake, 10lb wt loss -with her son at the bedside, c/o anxiety as well -will send labs, ekg, cxr, head ct, ivf hydration -was started on a new antidepressend Viibyrd but stopped after 3 days of use secondary to feeling worse on it, does take klonopin tid 0.5mg -will monitor and reassess -no focal findings on neuro other than blurred vision -will discuss with Dr. Cerna 15:[address] Cerna's answering service, awaiting call back. 09/01/19 16:[address] with chronic changes cxr shows hilar enlargement consistent with prior films, otherwise clear 09/01/19 17:49 labs reviewed pt with persistent dizziness will discuss with SYMPHONY will place consult to dr. cerna 09/01/19 18:17 pt with generalized weakness not feeling better despite meds poss related to viral syndrome and MG 09/01/19 18:[address] Marquez who accepts pt to service Discharge - Discharge Information Problems reviewed: Yes Clinical Impression/Diagnosis: Blurred vision, bilateral, Myasthenia gravis, Intractable nausea and vomiting Condition: Fair - Admission Yes - Follow up/Referral Referrals: Mars Cardona MD [Primary Care Provider] - - Patient Discharge Instructions - Post Discharge Activity
--- NOTE | 2019-09-01 16:03 | EKG ---
Test Reason : Blood Pressure : / mmHG Vent. Rate : 067 BPM Atrial Rate : 067 BPM P-R Int : 154 ms QRS Dur : 150 ms QT Int : 414 ms P-R-T Axes : 058 -19 -14 degrees QTc Int : 437 ms NORMAL SINUS RHYTHM RIGHT BUNDLE BRANCH BLOCK ABNORMAL ECG WHEN COMPARED WITH ECG OF 01-SEP-2019 13:17, NO SIGNIFICANT CHANGE WAS FOUND Confirmed by Jose Frank ([id number]) on 09/01/2019 4:02:55 PM Referred By: YOLANDE HURD Confirmed By:Jose Frank
[2019-09-01 16:37] LABS: BASO % 0.3 % (0-2.0); EOS % 0.8 % (0-4.5); HEMATOCRIT 36.9 % (32.4-45.2); HEMOGLOBIN 12.4 GM/dl (10.7-15.3); LYMPH % 12.1 % (8-40); MCH 29.1 pg (25.7-33.7); MCHC 33.6 g/dl (32.0-36.0); MEAN CELL VOLUME 86.6 fl (80-96); MEAN PLT VOLUME 8.3 fl (7.5-11.1); MONO % 4.7 % (3.8-10.2); NEUT % 82.1 % (42.8-82.8); PLATELET COUNT 267 K/MM3 (134-434); RBC 4.26 M/mm3 (3.60-5.2); RDW 14.2 % (11.6-15.6); WHITE BLOOD COUNT 7.6 K/mm3 (4.0-10.8)
[2019-09-01 16:49] LABS: ALBUMIN 3.7 g/dl (3.4-5.0); BILIRUBIN,TOTAL 0.8 mg/dl (0.2-1); CALCIUM 9.3 mg/dl (8.5-10); CREATININE 0.7 mg/dl (0.55-1.3); TOT PROT 6.4 g/dl (6.4-8.2)
[2019-09-01 16:51] LABS: INR 1.25 (0.82-1.09); PROTHROMBIN TIME (PATIENT) 13.9 SEC (10.2-13.0)
[2019-09-01] MEDS ORDERED: ZOLPIDEM TARTRATE 5 MG TABLET PO PRN (22:00)
[2019-09-01] MEDS ORDERED: MECLIZINE HCL 12.5 MG TABLET PO PRN (22:39)
--- NOTE | 2019-09-01 22:43 | HP ---
CHIEF COMPLAINT: blurry vision, anorexia, cough, chills, nausea and dizziness PCP: Dr. Joshua Cardona HISTORY OF PRESENT ILLNESS: 82 year old female with history of myasthenia gravis, chronic sinusitis, anxiety , depression, COPD,chronic diastolic dysfx and mild non-obstx CAD on cath 2016 at [facility] and hypertension, who presents to the emergency department with 1 week of blurry vision, chills, nausea, dizziness, cough, and decreased oral intake. As per patient, she reported she has been experiencing blurry vision for the past 20 years which has since worsened over the course of the past week with increased anxiety attacks. She notes that she has been evaluated in the past by optometry, ENT, and neurology for her symptoms. She notes Dr. Swartz recently diagnosed her with myasthenia gravis again and placed her on Mestinon ( 1 week) and Viibryd (3 days). She notes she was supposed to have an outpatient MRI today but, secondary to her symptoms she reported to the ED for further evaluation. ER course was notable for: (1)CT scan of head with moderate volume loss, no evidence of infarct or hemorrhage Recent Travel: no PAST MEDICAL HISTORY: myasthenia gravis chronic sinusitis anxiety depression COPD ASHD (s/p cardiac catheterization) heart failure hypertension PAST SURGICAL HISTORY: cataract surgery Social History: Smoking:no Alcohol:no Drugs: no Allergies No Known Allergies Allergy (Verified 09/01/19 13:07) HOME MEDICATIONS: Home Medications Medication Instructions Recorded Amlodipine Besylate [Norvasc -] 5 mg PO DAILY 01/05/19 Aspirin [ASA -] 81 mg PO DAILY 01/05/19 Atorvastatin Calcium [Lipitor] 10 mg PO DAILY 01/05/19 Zolpidem Tartrate [Ambien] 5 mg PO HS 01/05/19 Ramipril [Altace] 5 mg PO DAILY capsule 01/06/19 Dexlansoprazole [Dexilant] 60 mg PO DAILY 09/01/19 Meclizine HCl [Antivert -] 12.5 mg PO TID PRN 09/01/19 Pyridostigmine [place] [Mestinon] 60 mg PO DAILY 09/01/19 Quetiapine Fumarate [Seroquel -] 50 mg PO HS 09/01/19 Vilazodone Hydrochloride [Viibryd] 10 mg PO 09/01/19 clonazePAM [Klonopin -] 0.5 mg PO BID 09/01/19 REVIEW OF SYSTEMS CONSTITUTIONAL: Absent: fever, chills, diaphoresis, generalized weakness, malaise, loss of appetite, weight change HEENT: Absent: rhinorrhea, nasal congestion, throat pain, throat swelling, difficulty swallowing, mouth swelling, ear pain, eye pain, visual changes CARDIOVASCULAR: Absent: chest pain, syncope, palpitations, irregular heart rate, lightheadedness , peripheral edema RESPIRATORY: Absent: cough, shortness of breath, dyspnea with exertion, orthopnea, wheezing, stridor, hemoptysis GASTROINTESTINAL: Absent: abdominal pain, abdominal distension, nausea, vomiting, diarrhea, constipation, melena, hematochezia GENITOURINARY: Absent: dysuria, frequency, urgency, hesitancy, hematuria, flank pain, genital pain MUSCULOSKELETAL: Absent: myalgia, arthralgia, joint swelling, back pain, neck pain SKIN: Absent: rash, itching, pallor HEMATOLOGIC/IMMUNOLOGIC: Absent: easy bleeding, easy bruising, lymphadenopathy, frequent infections ENDOCRINE: Absent: unexplained weight gain, unexplained weight loss, heat intolerance, cold intolerance NEUROLOGIC: Absent: blurry vision, headache, focal weakness or paresthesias, dizziness, unsteady gait, seizure, mental status changes, bladder or bowel incontinence PSYCHIATRIC: Absent: anxiety, depression, suicidal or homicidal ideation, hallucinations. PHYSICAL EXAMINATION Vital Signs - 24 hr 09/01/19 09/01/19 09/01/19 14:26 19:00 21:00 Temperature 98.1 F 98.4 F Pulse Rate 87 Pulse Rate [ 83 Apical] Respiratory 18 17 18 Rate Blood Pressure 130/72 Blood Pressure 110/50 L [Left Arm] O2 Sat by Pulse 95 94 L 97 Oximetry (%) 09/01/19 21:05 Temperature 98.0 F Pulse Rate 76 Pulse Rate [ Apical] Respiratory 18 Rate Blood Pressure 133/63 Blood Pressure [Left Arm] O2 Sat by Pulse 97 Oximetry (%) GENERAL: awake, alert, and fully oriented no acute distress HEAD: normal EYES: pupils equal, round and reactive to light EARS, NOSE, THROAT: ears normal, nares patent NECK: normal LUNGS: breath sounds equal, clear to auscultation bilaterally HEART: regular rate and rhythm normal S1 and S2 ABDOMEN: soft, nontender, not distended, normoactive bowel sounds MUSCULOSKELETAL: normal range of motion UPPER EXTREMITIES: 2+ pulses warm well-perfused no cyanosis LOWER EXTREMITIES: 2+ pulses, warm, well-perfused no calf tenderness no pitting edema NEUROLOGICAL: moving upper and lower extremities with no weakness, normal speech, no facial grimace, no droop PSYCHIATRIC: Cooperative. Good eye contact. Appropriate mood and affect. SKIN: Warm, dry, normal turgor, no rashes or lesions noted, normal capillary refill. Laboratory Results - last 24 hr 09/01/19 09/01/19 09/01/19 15:19 16:10 16:10 WBC RBC Hgb Hct MCV MCH MCHC RDW Plt Count MPV Absolute Neuts (auto) Neutrophils % Lymphocytes % Monocytes % Eosinophils % Basophils % PT with INR INR PTT (Actin FS) 29.8 Sodium 143 Potassium 4.0 Chloride 105 Carbon Dioxide 30 Anion Gap 8 BUN 7.0 Creatinine 0.7 Est GFR (CKD-EPI)AfAm 90.93 Est GFR (CKD-EPI)NonAf 78.45 Random Glucose 97 Calcium 9.3 Magnesium 2.0 Total Bilirubin 0.8 AST 13 L ALT 8 L Alkaline Phosphatase 51 Creatine Kinase 38 Troponin I < 0.03 Total Protein 6.4 Albumin 3.7 Urine Color Urine Appearance Urine pH Urine Protein Urine Glucose (UA) Urine Ketones Urine Blood Urine Nitrite Urine Bilirubin Urine Urobilinogen Ur Leukocyte Esterase 09/01/19 09/01/19 09/01/19 16:10 16:10 17:05 WBC 7.6 RBC 4.26 Hgb 12.4 Hct 36.9 MCV 86.6 MCH 29.1 MCHC 33.6 RDW 14.2 Plt Count 267 MPV 8.3 Absolute Neuts (auto) 6.2 Neutrophils % 82.1 Lymphocytes % 12.1 Monocytes % 4.7 Eosinophils % 0.8 Basophils % 0.3 PT with INR 13.9 H INR 1.25 H PTT (Actin FS) Sodium Potassium Chloride Carbon Dioxide Anion Gap BUN Creatinine Est GFR (CKD-EPI)AfAm Est GFR (CKD-EPI)NonAf Random Glucose Calcium Magnesium Total Bilirubin AST ALT Alkaline Phosphatase Creatine Kinase Troponin I Total Protein Albumin Urine Color Yellow Urine Appearance Clear Urine pH 5.5 Urine Protein Negative Urine Glucose (UA) Negative Urine Ketones Negative Urine Blood Negative Urine Nitrite Negative Urine Bilirubin Negative Urine Urobilinogen 0.2 Ur Leukocyte Esterase Negative ASSESSMENT/PLAN: 82 year old female with history a year old female of myasthenia gravis, chronic sinusitis, anxiety, depression, COPD, chronic diastolic dysfx and mild non- obstx CAD on cath 2017 at [facility] and hypertension who presented with 1 week of blurry vision to both eyes , chills, nausea, dizziness, cough, and decreased oral intake.CT scan of head showed no acute findings. She is being admitted to [facility] for further neurological evaluation. #[address] scan of head with no acute findings. Neurology - Dr. Evans consulted MRA of brain with/without contrast ordered #2 Anxiety continue with seroquel #3 Hypertension controlled continue ramipril and amlodipine #4 Diastolic Congestive Heart Failure no acute exacerbation #5 Mild Nonobstrictive Coronary Artery Disease [facility] denies angina, troponin normal, EKG normal sinus rhythm with RBBB continue asa and statin FEN no IV fluids indicated monitor daily BMP will keep NPO once cleared by Neurology DVT Prophylaxis SCD's Lovenox 30 mg once daily Visit type - Emergency Visit Emergency Visit: Yes ED Registration Date: 09/01/19 Care time: The patient presented to the Emergency Department on the above date and was hospitalized for further evaluation of their emergent condition. - New Patient This patient is new to me today: Yes Date on this admission: 09/02/19 - Critical Care Critical Care patient: No
[2019-09-01] MEDS ORDERED: QUEtiapine FUMARATE 50 MG TABLET PO SCH (23:00)
[2019-09-01] MEDS ORDERED: ATORVASTATIN CA 10 MG TABLET (FP) PO SCH (23:00)
[2019-09-01] MEDS ORDERED: QUEtiapine FUMARATE 25 MG TABLET ONE (23:03)
--- NOTE | 2019-09-02 08:00 | PN ---
"Physical Exam: SUBJECTIVE: Patient seen and examined. Voices many complaints, difficult to direct her focus. OBJECTIVE: Vital Signs Period Temp Pulse Resp BP Sys/Montanez Pulse Ox Last 24 Hr 97.9 F-98.4 F 76-87 17-18 110-153/50-72 94-97 GENERAL: The patient is awake, alert, and fully oriented, in no acute distress. Anxious. LUNGS: Breath sounds equal, clear to auscultation bilaterally, no wheezes, no crackles, no accessory muscle use. Mild cough. HEART: Regular rate and rhythm, S1, S2 ABDOMEN: Soft, nontender, nondistended EXTREMITIES: 2+ pulses, warm, well-perfused, no edema. NEUROLOGICAL: Cranial nerves II through XII grossly intact. Normal speech, self- positions easily. Slight right eyelid droop has had x 15 years SKIN: Warm, dry, normal turgor Laboratory Results - last 24 hr 09/01/19 09/01/19 09/01/19 15:19 16:10 16:10 WBC RBC Hgb Hct MCV MCH MCHC RDW Plt Count MPV Absolute Neuts (auto) Neutrophils % Lymphocytes % Monocytes % Eosinophils % Basophils % PT with INR INR PTT (Actin FS) 29.8 Sodium 143 Potassium 4.0 Chloride 105 Carbon Dioxide 30 Anion Gap 8 BUN 7.0 Creatinine 0.7 Est GFR (CKD-EPI)AfAm 90.93 Est GFR (CKD-EPI)NonAf 78.45 Random Glucose 97 Calcium 9.3 Magnesium 2.0 Total Bilirubin 0.8 AST 13 L ALT 8 L Alkaline Phosphatase 51 Creatine Kinase 38 Troponin I < 0.03 Total Protein 6.4 Albumin 3.7 Urine Color Urine Appearance Urine pH Urine Protein Urine Glucose (UA) Urine Ketones Urine Blood Urine Nitrite Urine Bilirubin Urine Urobilinogen Ur Leukocyte Esterase 09/01/19 09/01/19 09/01/19 16:10 16:10 17:05 WBC 7.6 RBC 4.26 Hgb 12.4 Hct 36.9 MCV 86.6 MCH 29.1 MCHC 33.6 RDW 14.2 Plt Count 267 MPV 8.3 Absolute Neuts (auto) 6.2 Neutrophils % 82.1 Lymphocytes % 12.1 Monocytes % 4.7 Eosinophils % 0.8 Basophils % 0.3 PT with INR 13.9 H INR 1.25 H PTT (Actin FS) Sodium Potassium Chloride Carbon Dioxide Anion Gap BUN Creatinine Est GFR (CKD-EPI)AfAm Est GFR (CKD-EPI)NonAf Random Glucose Calcium Magnesium Total Bilirubin AST ALT Alkaline Phosphatase Creatine Kinase Troponin I Total Protein Albumin Urine Color Yellow Urine Appearance Clear Urine pH 5.5 Urine Protein Negative Urine Glucose (UA) Negative Urine Ketones Negative Urine Blood Negative Urine Nitrite Negative Urine Bilirubin Negative Urine Urobilinogen 0.2 Ur Leukocyte Esterase Negative Active Medications Generic Name Dose Route Start Last Admin Trade Name Freq PRN Reason Stop Dose Admin Amlodipine Besylate 5 mg 09/02/19 10:00 Norvasc - PO DAILY [facility] Aspirin 81 mg 09/02/19 10:00 Asa - PO DAILY [facility] Atorvastatin Calcium 10 mg 09/01/19 23:00 09/01/19 23:03 Lipitor - PO 10 mg HS [facility] Administration Clonazepam 0.5 mg 09/02/19 10:00 Klonopin - PO BID [facility] Enoxaparin Sodium 40 mg 09/02/19 10:00 Lovenox - SQ DAILY [facility] Pantoprazole Sodium 40 mg 09/02/19 10:00 Protonix - PO DAILY [facility] Pyridostigmine [place] 60 mg 09/02/19 10:00 Mestinon - PO DAILY [facility] Quetiapine Fumarate 50 mg 09/01/19 23:00 09/01/19 23:04 Seroquel - PO 50 mg HS [facility] Administration Ramipril 5 mg 09/02/19 10:00 Altace - PO DAILY [facility] ASSESSMENT/PLAN 82 year-old female with a PMH significant for HTN, CAD, diastolic dysfunction, myasthenia gravis x 15 years, chronic sinusitis, anxiety/depression. Presented with multiple complaints. Two problems can be identified: mildly blurred vision x 10 days and anxiety. 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 Long discussion with family members who feel frustrated. Presents with complaint of blurry vision x [address] Swartz one week ago who prescribed pyridostigmine and vilazodone, and ordered an MRI which was scheduled for today. Blurred vision h/o myasthenia gravis --first diagnosed 15 years ago, not on meds --saw Dr. Swartz one week ago for workup, he prescribed pyridostigmine which she has been taking, also ordered an MRI which was scheduled for today --04/20/19 MRI brain w&w/o contrast: unremarkable study --repeat MRI brain ordered and pending --continue pyridostigmine Anxiety/depression --was on Zoloft for many years, stopped taking, not clear why --Dr. Swartz prescribed vilazadone last week but patient stopped taking as it made her feel shaky --will continue clonazepam 0.5mg BID prescribed by psych PA Hypertension --BP is well-controlled --continue ramipril, amlodipine Coronary artery disease --continue ASA, atorvastatin Diastolic dysfunction --01/06/19 echo: LV normal, EF 65-70%, Grade I diastolic dysfunction; RV normal ; mild TR, pHTN, mild AI, trace to mild PI --appears euvolemic, not on diuretics --continue ramipril Chronic sinusitis --04/2020 MRI: no opacification of paranasal sinuses or mastoid air cells Hypokalemia --replete FEN Fluids: PO intake adequate Electrolytes: replete as indicated Nutrition: low sodium DVT prophylaxis: subq heparin Dispo: continues to require inpatient care. Patient does not have advanced directives, makes her own medical decisions. She is fully competent. Full code. This report was requested by: Nela Murrieta | Reference #: [id number] Others' Prescriptions Patient Name: Betty Dior Date: 1935 Address: [address] [place] [address] Sex: Female Rx Written Rx Dispensed Drug Quantity Days Supply Prescriber Name 08/23/2019 08/23/2019 lorazepam 0.5 mg tablet 60 30 Trevon Welch (PSYCHIATRY RESIDENT) 07/24/2019 07/28/2019 clonazepam 0.5 mg tablet 30 30 Trevon Welch (PSYCHIATRY RESIDENT) 07/24/2019 07/28/2019 zolpidem tartrate 10 mg tablet 30 30 GoCarolina MD 02/04/2019 06/12/2019 zolpidem tartrate 10 mg tablet 30 30 GoCarolina MD 04/18/2019 04/18/2019 diazepam 5 mg tablet 1 1 Go, Carolina Alfonso MD 04/14/2019 04/14/2019 dronabinol 2.5 mg capsule 60 30 Melo Cardona J MD 02/04/2019 03/20/2019 zolpidem tartrate 10 mg tablet 30 30 GoCarolina MD 02/04/2019 02/05/2019 zolpidem tartrate 10 mg tablet 30 30 GoCarolina MD 07/12/2018 01/07/2019 zolpidem tartrate 10 mg tablet 30 30 GuillermoCarolina MD 07/12/2018 11/29/2018 zolpidem tartrate 10 mg tablet 30 30 GuillermoCarolina MD 11/15/2018 11/29/2018 clonazepam 0.25 mg odt 120 30 Go, Carolina Alfonso MD 11/29/2018 11/29/2018 tramadol hcl 50 mg tablet 60 15 Go, Carolina Alfonso MD 07/12/2018 10/15/2018 zolpidem tartrate 10 mg tablet 30 30 GuillermoCarolina MD 07/12/2018 09/13/2018 zolpidem tartrate 10 mg tablet 30 30 GuillermoCarolina MD * - Drugs marked with an asterisk are compound drugs. If the compound drug is made up of more than one controlled substance, then each controlled substance will be a separate row in the table. Visit type - Emergency Visit Emergency Visit: Yes ED Registration Date: 09/01/19 Care time: The patient presented to the Emergency Department on the above date and was hospitalized for further evaluation of their emergent condition. - New Patient This patient is new to me today: Yes Date on this admission: 09/02/19 - Critical Care Critical Care patient: No"
[2019-09-02 08:09] LABS: CALCIUM 8.4 mg/dl (8.5-10); CREATININE 0.7 mg/dl (0.55-1.3)
[2019-09-02 08:10] LABS: HEMOGLOBIN 11.9 GM/dl (10.7-15.3); MCH 29.5 pg (25.7-33.7); MCHC 33.8 g/dl (32.0-36.0); MEAN CELL VOLUME 87.2 fl (80-96); MEAN PLT VOLUME 8.2 fl (7.5-11.1); PLATELET COUNT 258 K/MM3 (134-434); RBC 4.01 M/mm3 (3.60-5.2); WHITE BLOOD COUNT 7.2 K/mm3 (4.0-10.8)
[2019-09-02] MEDS ORDERED: PT OWN MED DRAWER 7, Y5N ONE (09:34)
[2019-09-02] MEDS: POTASSIUM CHLORIDE TABS 20 MEQ TABLET.ER (FP) PO SCH ×2 (09:36→14:37)
[2019-09-02] MEDS ORDERED: ENOXAPARIN NA (PORCINE) 40 MG/0.4 ML DISP.SYRIN SQ SCH (10:00)
[2019-09-02] MEDS ORDERED: PYRIDOSTIGMINE BROMIDE 60 MG TABLET PO SCH (10:00)
[2019-09-02] MEDS ORDERED: clonazePAM 0.5 MG TABLET PO SCH (10:00)
[2019-09-02] MEDS ORDERED: PANTOPRAZOLE 40 MG TABLET PO SCH (10:00)
[2019-09-02] MEDS ORDERED: amLODIPine BESYLATE 5 MG TABLET (FP) PO SCH (10:00)
[2019-09-02] MEDS ORDERED: ASPIRIN 81 MG CHEWABLE TABLETS PO SCH (10:00)
[2019-09-02] MEDS ORDERED: RAMIPRIL 5 MG CAPSULE (FP) PO SCH (10:00)
[2019-09-02] MEDS ORDERED: VILAZODONE HYDROCHLORIDE 10 MG TABLET PO SCH (12:00)
[2019-09-02] MEDS ORDERED: ESCITALOPRAM OXALATE 10 MG TABLET PO SCH (12:15)
[2019-09-02 14:16] VITALS: BP 120/66; PULSE 83; TEMP 98.7
[2019-09-02] MEDS ORDERED: clonazePAM 0.5 MG TABLET PO ONE (15:30)
--- NOTE | 2019-09-02 18:20 | DS ---
Physical Exam: SUBJECTIVE: Patient seen and examined OBJECTIVE: Vital Signs Period Temp Pulse Resp BP Sys/Montanez Pulse Ox Last 24 Hr 97.9 F-98.7 F 76-83 16-18 110-153/50-66 93-97 PHYSICAL EXAM GENERAL: The patient is awake, alert, and fully oriented, in no acute distress. HEAD: Normal with no signs of trauma. EYES: PERRL, extraocular movements intact, sclera anicteric, conjunctiva clear. ENT: Ears normal, nares patent, oropharynx clear without exudates, moist mucous membranes. NECK: Trachea midline, full range of motion, supple. LUNGS: Breath sounds equal, clear to auscultation bilaterally, no wheezes, no crackles, no accessory muscle use. HEART: Regular rate and rhythm, S1, S2 without murmur, rub or gallop. ABDOMEN: Soft, nontender, nondistended, normoactive bowel sounds, no guarding, no rebound, no hepatosplenomegaly, no masses. EXTREMITIES: 2+ pulses, warm, well-perfused, no edema. NEUROLOGICAL: Cranial nerves II through XII grossly intact. Normal speech, gait not observed. PSYCH: Normal mood, normal affect. SKIN: Warm, dry, normal turgor, no rashes or lesions noted. LABS Laboratory Results - last 24 hr 09/02/19 09/02/19 09/02/19 07:20 07:20 07:20 WBC 7.2 RBC 4.01 Hgb 11.9 Hct 35.0 MCV 87.2 MCH 29.5 MCHC 33.8 RDW 14.0 Plt Count 258 MPV 8.2 Sodium 142 Potassium 3.0 L Chloride 109 H Carbon Dioxide 27 Anion Gap 6 L BUN 8.0 Creatinine 0.7 Est GFR (CKD-EPI)AfAm 90.93 Est GFR (CKD-EPI)NonAf 78.45 Random Glucose 92 Calcium 8.4 L Magnesium 1.9 TSH 3.24 HOSPITAL COURSE: Date of Admission:09/01/19 Date of Discharge: 09/02/19 Minutes to complete discharge: 35 Discharge Summary Problems reviewed: Yes Reason For Visit: MYASTHENIA GRAVIS/BLURRING OF VISUAL IMAGE(EYES) Current Active Problems Blurred vision, bilateral (Acute) Intractable nausea and vomiting (Acute) Myasthenia gravis (Acute) Condition: Improved - Instructions Diet, Activity, Other Instructions: It is VERY IMPORTANT you follow up with Dr. Swartz for your next scheduled appointment. Dr. Swartz will have access to the MRI study done today. Referrals: Mars Cardona MD [Primary Care Provider] - Jesus Swartz MD [Staff Physician] - Disposition: HOME - Home Medications Comprehensive Discharge Medication List: Ambulatory Orders Amlodipine Besylate [Norvasc -] 5 mg PO DAILY 01/05/19 Aspirin [ASA -] 81 mg PO DAILY 01/05/19 Atorvastatin Calcium [Lipitor] 10 mg PO DAILY 01/05/19 Zolpidem Tartrate [Ambien] 5 mg PO HS 01/05/19 Ramipril [Altace] 5 mg PO DAILY capsule 01/06/19 Dexlansoprazole [Dexilant] 60 mg PO DAILY 09/01/19 Meclizine HCl [Antivert -] 12.5 mg PO TID PRN 09/01/19 Pyridostigmine [place] [Mestinon] 60 mg PO DAILY 09/01/19 Quetiapine Fumarate [Seroquel -] 50 mg PO HS 09/01/19 clonazePAM [Klonopin -] 0.5 mg PO BID 09/01/19 This patient is new to me today: Yes Date on this admission: 09/02/19 Emergency Visit: Yes ED Registration Date: 09/01/19 Care time: The patient presented to the Emergency Department on the above date and was hospitalized for further evaluation of their emergent condition. Critical Care patient: No - Discharge Referral Referred to [facility] No
[2019-09-02] MEDS ORDERED: QUEtiapine FUMARATE 50 MG TABLET PO SCH (22:00)
== END 2019-09-02 18:41 | disposition home or self-care (01) | DRG 57 ==
LOC: FER 14:24 → FM/S 18:52
PROVIDERS: ADMIT Internal Medicine; ATTEND Nurse Practitioner Acute Care
DX: G70.00 Myasthenia gravis without (acute) exacerbation (principal); I50.32 Chronic diastolic (congestive) heart failure; I11.0 Hypertensive heart disease with heart failure; J44.9 Chronic obstructive pulmonary disease, unspecified; I25.10 Atherosclerotic heart disease of native coronary artery without angina pectoris; F41.8 Other specified anxiety disorders; E87.6 Hypokalemia; Z87.891 Personal history of nicotine dependence
CPT/HCPCS: 36415; 70450-TC; 70551-TC; 71046-TC-FY; 80048; 80053; 81003; 82550; 83735; 84443; 84484; 85025; 85027; 85610; 85730; 93005; 99285-25; J0131; J7030

== ENCOUNTER 2020-09-07 04:25 | Inpatient (IN) | payer BC, OTHER ==
[2020-09-07] MEDS ORDERED: methylPREDNISolone NA SUCC 40 MG/1 ML VIAL ONE (12:53)
[2020-09-07] MEDS ORDERED: methylPREDNISolone NA SUCC 40 MG/1 ML VIAL IVPUSH ONE (13:22)
[2020-09-07] MEDS: clonazePAM 0.5 MG TABLET PO SCH ×2 (17:33→21:31)
[2020-09-07] MEDS: methylPREDNISolone NA SUCC 40 MG/1 ML VIAL IVPUSH SCH (21:30)
[2020-09-07] MEDS: QUEtiapine FUMARATE 50 MG TABLET PO SCH (21:31)
[2020-09-07] MEDS ORDERED: methylPREDNISolone NA SUCC 40 MG/1 ML VIAL IVPUSH SCH (22:00)
[2020-09-08] MEDS: ALBUTEROL SO4 2.5/IPRATROPIUM 0.5 INH SOL 3 ML VIAL.NEB. NEB SCH ×3 (08:00→20:30)
[2020-09-08 09:22] LABS: BASO % 0.1 % (0-2.0); HEMATOCRIT 38.9 % (32.4-45.2); HEMOGLOBIN 12.7 GM/dL (10.7-15.3); LYMPH % 9.5 % (8-40); MCH 27.1 pg (25.7-33.7); MCHC 32.8 g/dl (32.0-36.0); MEAN CELL VOLUME 82.8 fl (80-96); MEAN PLT VOLUME 8.4 fl (7.5-11.1); NEUT % 86.4 % (42.8-82.8); PLATELET COUNT 293 K/MM3 (134-434); RBC 4.69 M/mm3 (3.60-5.2); RDW 16.4 % (11.6-15.6); WHITE BLOOD COUNT 8.4 K/mm3 (4.0-10.0)
[2020-09-08] MEDS ORDERED: PT OWN MED DRAWER 7, Y5N ONE (09:24)
[2020-09-08] MEDS: RAMIPRIL 5 MG CAPSULE PO SCH (09:35)
[2020-09-08] MEDS: clonazePAM 0.5 MG TABLET PO SCH ×2 (09:35→21:16)
[2020-09-08] MEDS: PARoxetine HCL 10 MG TABLET PO SCH (09:35)
[2020-09-08] MEDS: methylPREDNISolone NA SUCC 40 MG/1 ML VIAL IVPUSH SCH ×2 (09:35→21:16)
[2020-09-08] MEDS: ASPIRIN 81 MG CHEWABLE TABLETS PO SCH (09:35)
[2020-09-08] MEDS: amLODIPine BESYLATE 5 MG TABLET (FP) PO SCH (09:35)
[2020-09-08] MEDS: ATORVASTATIN CA 10 MG TABLET (FP) PO SCH (09:35)
[2020-09-08] MEDS: ENOXAPARIN NA (PORCINE) 40 MG/0.4 ML DISP.SYRIN SQ SCH (09:35)
[2020-09-08 10:16] LABS: CALCIUM 9.1 mg/dL (8.5-10.1)
[2020-09-08 10:17] LABS: ALBUMIN 3.6 g/dl (3.4-5.0); BLOOD UREA NITROGEN 11.6 mg/dL (7-18)
[2020-09-08 10:20] LABS: CREATININE 0.8 mg/dL (0.55-1.3)
[2020-09-08 10:21] LABS: BILIRUBIN,TOTAL 0.5 mg/dL (0.2-1)
[2020-09-08 10:26] LABS: POTASSIUM 4.5 mmol/L (3.5-5.1)
[2020-09-08] MEDS: ACETAMINOPHEN 325 MG TABLET (FP) PO PRN (18:13)
[2020-09-08] MEDS: QUEtiapine FUMARATE 50 MG TABLET PO SCH (21:16)
[2020-09-09] MEDS: ALBUTEROL SO4 2.5/IPRATROPIUM 0.5 INH SOL 3 ML VIAL.NEB. NEB SCH ×4 (07:30→20:30)
[2020-09-09] MEDS: clonazePAM 0.5 MG TABLET PO SCH ×2 (09:15→21:47)
[2020-09-09] MEDS: methylPREDNISolone NA SUCC 40 MG/1 ML VIAL IVPUSH SCH (09:15)
[2020-09-09] MEDS: RAMIPRIL 5 MG CAPSULE PO SCH (09:15)
[2020-09-09] MEDS: amLODIPine BESYLATE 5 MG TABLET (FP) PO SCH (09:15)
[2020-09-09] MEDS: ASPIRIN 81 MG CHEWABLE TABLETS PO SCH (09:15)
[2020-09-09] MEDS: ATORVASTATIN CA 10 MG TABLET (FP) PO SCH (09:15)
[2020-09-09] MEDS: ENOXAPARIN NA (PORCINE) 40 MG/0.4 ML DISP.SYRIN SQ SCH (09:16)
[2020-09-09] MEDS ORDERED: PT OWN MED DRAWER 7, Y5N ONE ×2 (09:20→17:13)
[2020-09-09] MEDS: PARoxetine HCL 10 MG TABLET PO SCH (09:21)
[2020-09-09] MEDS: QUEtiapine FUMARATE 50 MG TABLET PO SCH (21:47)
[2020-09-10 08:18] LABS: BASO % 0.3 % (0-2.0); EOS % 0.3 % (0-4.5); HEMATOCRIT 33.8 % (32.4-45.2); HEMOGLOBIN 11.1 GM/dL (10.7-15.3); LYMPH % 22.8 % (8-40); MCHC 32.8 g/dl (32.0-36.0); MEAN CELL VOLUME 82.3 fl (80-96); NEUT % 67.6 % (42.8-82.8); PLATELET COUNT 271 K/MM3 (134-434); RDW 16.4 % (11.6-15.6); WHITE BLOOD COUNT 8.8 K/mm3 (4.0-10.0)
[2020-09-10] MEDS: ALBUTEROL SO4 2.5/IPRATROPIUM 0.5 INH SOL 3 ML VIAL.NEB. NEB SCH ×3 (08:25→21:00)
[2020-09-10 08:36] LABS: POTASSIUM 3.9 mmol/L (3.5-5.1)
[2020-09-10 09:00] LABS: BLOOD UREA NITROGEN 16.8 mg/dL (7-18); CALCIUM 8.5 mg/dL (8.5-10.1)
[2020-09-10 09:01] LABS: ALBUMIN 3.2 g/dl (3.4-5.0)
[2020-09-10 09:04] LABS: CREATININE 0.7 mg/dL (0.55-1.3)
[2020-09-10 09:05] LABS: BILIRUBIN,TOTAL 0.3 mg/dL (0.2-1); TOT PROT 5.9 g/dl (6.4-8.2)
[2020-09-10] MEDS: ATORVASTATIN CA 10 MG TABLET (FP) PO SCH (09:43)
[2020-09-10] MEDS: amLODIPine BESYLATE 5 MG TABLET (FP) PO SCH (09:43)
[2020-09-10] MEDS: ACETAMINOPHEN 325 MG TABLET (FP) PO PRN ×2 (09:43→18:37)
[2020-09-10] MEDS: ENOXAPARIN NA (PORCINE) 40 MG/0.4 ML DISP.SYRIN SQ SCH (09:43)
[2020-09-10] MEDS: RAMIPRIL 5 MG CAPSULE PO SCH (09:44)
[2020-09-10] MEDS: clonazePAM 0.5 MG TABLET PO SCH ×2 (09:45→21:27)
[2020-09-10] MEDS: ASPIRIN 81 MG CHEWABLE TABLETS PO SCH (09:46)
[2020-09-10] MEDS ORDERED: PT OWN MED DRAWER 7, Y5N ONE (09:47)
[2020-09-10] MEDS: PARoxetine HCL 10 MG TABLET PO SCH (09:48)
[2020-09-10] MEDS: QUEtiapine FUMARATE 50 MG TABLET PO SCH (21:27)
[2020-09-11] MEDS: ALBUTEROL SO4 2.5/IPRATROPIUM 0.5 INH SOL 3 ML VIAL.NEB. NEB SCH ×3 (07:45→20:40)
[2020-09-11 08:43] LABS: BASO % 0.1 % (0-2.0); EOS % 1.7 % (0-4.5); HEMATOCRIT 33.7 % (32.4-45.2); HEMOGLOBIN 11.1 GM/dL (10.7-15.3); LYMPH % 31.1 % (8-40); MCH 27.4 pg (25.7-33.7); MEAN CELL VOLUME 82.9 fl (80-96); MEAN PLT VOLUME 8.5 fl (7.5-11.1); MONO % 6.3 % (3.8-10.2); NEUT % 60.8 % (42.8-82.8); PLATELET COUNT 218 K/MM3 (134-434); RBC 4.06 M/mm3 (3.60-5.2); RDW 16.2 % (11.6-15.6); WHITE BLOOD COUNT 5.6 K/mm3 (4.0-10.0)
[2020-09-11 08:54] LABS: POTASSIUM 4.5 mmol/L (3.5-5.1)
[2020-09-11 09:06] LABS: CALCIUM 8.1 mg/dL (8.5-10.1)
[2020-09-11 09:07] LABS: BLOOD UREA NITROGEN 19.8 mg/dL (7-18)
[2020-09-11 09:10] LABS: BILIRUBIN,TOTAL 0.4 mg/dL (0.2-1); CREATININE 0.6 mg/dL (0.55-1.3); TOT PROT 5.6 g/dl (6.4-8.2)
[2020-09-11] MEDS ORDERED: PT OWN MED DRAWER 7, Y5N ONE (09:20)
[2020-09-11] MEDS: ASPIRIN 81 MG CHEWABLE TABLETS PO SCH (09:23)
[2020-09-11] MEDS: ATORVASTATIN CA 10 MG TABLET (FP) PO SCH (09:23)
[2020-09-11] MEDS: amLODIPine BESYLATE 5 MG TABLET (FP) PO SCH (09:24)
[2020-09-11] MEDS: ENOXAPARIN NA (PORCINE) 40 MG/0.4 ML DISP.SYRIN SQ SCH (09:24)
[2020-09-11] MEDS: RAMIPRIL 5 MG CAPSULE PO SCH (09:24)
[2020-09-11] MEDS: PARoxetine HCL 10 MG TABLET PO SCH (09:24)
[2020-09-11] MEDS: clonazePAM 0.5 MG TABLET PO SCH ×2 (09:24→21:39)
[2020-09-11] MEDS: QUEtiapine FUMARATE 50 MG TABLET PO SCH (21:38)
[2020-09-12] MEDS: ALBUTEROL SO4 2.5/IPRATROPIUM 0.5 INH SOL 3 ML VIAL.NEB. NEB SCH ×2 (08:30→13:43)
[2020-09-12] MEDS ORDERED: PT OWN MED DRAWER 7, Y5N ONE (09:38)
[2020-09-12] MEDS: PARoxetine HCL 10 MG TABLET PO SCH (09:44)
[2020-09-12] MEDS: amLODIPine BESYLATE 5 MG TABLET (FP) PO SCH (09:45)
[2020-09-12] MEDS: ATORVASTATIN CA 10 MG TABLET (FP) PO SCH (09:45)
[2020-09-12] MEDS: ASPIRIN 81 MG CHEWABLE TABLETS PO SCH (09:45)
[2020-09-12] MEDS: RAMIPRIL 5 MG CAPSULE PO SCH (09:45)
[2020-09-12] MEDS: ENOXAPARIN NA (PORCINE) 40 MG/0.4 ML DISP.SYRIN SQ SCH (09:45)
[2020-09-12] MEDS: clonazePAM 0.5 MG TABLET PO SCH ×2 (09:45→21:29)
[2020-09-12] MEDS: QUEtiapine FUMARATE 50 MG TABLET PO SCH (21:29)
[2020-09-13 10:14] LABS: BASO % 0.1 % (0-2.0); EOS % 1.7 % (0-4.5); HEMATOCRIT 37.1 % (32.4-45.2); HEMOGLOBIN 12.4 GM/dL (10.7-15.3); LYMPH % 17.7 % (8-40); MCH 27.5 pg (25.7-33.7); MCHC 33.4 g/dl (32.0-36.0); MEAN CELL VOLUME 82.3 fl (80-96); MEAN PLT VOLUME 8.4 fl (7.5-11.1); MONO % 4.2 % (3.8-10.2); NEUT % 76.3 % (42.8-82.8); PLATELET COUNT 295 K/MM3 (134-434); RBC 4.51 M/mm3 (3.60-5.2); RDW 16.3 % (11.6-15.6); WHITE BLOOD COUNT 8.2 K/mm3 (4.0-10.0)
[2020-09-13 10:35] LABS: POTASSIUM 4.4 mmol/L (3.5-5.1)
[2020-09-13 10:44] LABS: ALBUMIN 3.4 g/dl (3.4-5.0)
[2020-09-13 10:45] LABS: BLOOD UREA NITROGEN 14.5 mg/dL (7-18)
[2020-09-13 10:48] LABS: BILIRUBIN,TOTAL 0.7 mg/dL (0.2-1); CREATININE 0.8 mg/dL (0.55-1.3)
[2020-09-13 10:49] LABS: TOT PROT 6.4 g/dl (6.4-8.2)
[2020-09-13 10:52] LABS: CALCIUM 8.5 mg/dL (8.5-10.1)
[2020-09-13] MEDS: RAMIPRIL 5 MG CAPSULE PO SCH (13:30)
[2020-09-13] MEDS: ENOXAPARIN NA (PORCINE) 40 MG/0.4 ML DISP.SYRIN SQ SCH (13:30)
[2020-09-13] MEDS: PARoxetine HCL 10 MG TABLET PO SCH (13:30)
[2020-09-13] MEDS: clonazePAM 0.5 MG TABLET PO SCH ×2 (13:30→21:35)
[2020-09-13] MEDS: ATORVASTATIN CA 10 MG TABLET (FP) PO SCH (13:30)
[2020-09-13] MEDS: amLODIPine BESYLATE 5 MG TABLET (FP) PO SCH (13:30)
[2020-09-13] MEDS: ASPIRIN 81 MG CHEWABLE TABLETS PO SCH (13:30)
[2020-09-13] MEDS: QUEtiapine FUMARATE 50 MG TABLET PO SCH (21:35)
[2020-09-14 06:47] LABS: BASO % 0.2 % (0-2.0); EOS % 0.8 % (0-4.5); HEMATOCRIT 34.9 % (32.4-45.2); HEMOGLOBIN 11.6 GM/dL (10.7-15.3); LYMPH % 10.5 % (8-40); MCH 27.1 pg (25.7-33.7); MCHC 33.1 g/dl (32.0-36.0); MEAN PLT VOLUME 8.3 fl (7.5-11.1); MONO % 3.9 % (3.8-10.2); NEUT % 84.6 % (42.8-82.8); PLATELET COUNT 234 K/MM3 (134-434); RBC 4.26 M/mm3 (3.60-5.2); RDW 16.2 % (11.6-15.6); WHITE BLOOD COUNT 8.3 K/mm3 (4.0-10.0)
[2020-09-14 07:06] LABS: CALCIUM 8.3 mg/dL (8.5-10.1)
[2020-09-14 07:07] LABS: BLOOD UREA NITROGEN 17.1 mg/dL (7-18)
[2020-09-14 07:10] LABS: CREATININE 0.6 mg/dL (0.55-1.3)
[2020-09-14 07:12] LABS: BILIRUBIN,TOTAL 0.4 mg/dL (0.2-1); TOT PROT 5.8 g/dl (6.4-8.2)
[2020-09-14] MEDS: ENOXAPARIN NA (PORCINE) 40 MG/0.4 ML DISP.SYRIN SQ SCH (09:04)
[2020-09-14] MEDS: RAMIPRIL 5 MG CAPSULE PO SCH (09:05)
[2020-09-14] MEDS: PANTOPRAZOLE 40 MG TABLET PO SCH (09:05)
[2020-09-14] MEDS: PARoxetine HCL 10 MG TABLET PO SCH (09:05)
[2020-09-14] MEDS: amLODIPine BESYLATE 5 MG TABLET (FP) PO SCH (09:05)
[2020-09-14] MEDS: clonazePAM 0.5 MG TABLET PO SCH ×2 (09:05→22:40)
[2020-09-14] MEDS: ATORVASTATIN CA 10 MG TABLET (FP) PO SCH (09:05)
[2020-09-14] MEDS: ASPIRIN 81 MG CHEWABLE TABLETS PO SCH (09:05)
[2020-09-14] MEDS ORDERED: PATIENT'S OWN MEDICATION (NON-FORMULARY) (Dexlansoprazole [Dexilant] 60 MG Cap.Dr.Bp) PO SCH (10:00)
[2020-09-14] MEDS ORDERED: PYRIDOSTIGMINE BROMIDE 60 MG TABLET PO SCH (10:00)
[2020-09-14] MEDS: ACETAMINOPHEN 325 MG TABLET (FP) PO PRN ×2 (18:29→23:27)
[2020-09-14] MEDS: QUEtiapine FUMARATE 50 MG TABLET PO SCH (22:39)
[2020-09-15 07:03] LABS: BASO % 0.2 % (0-2.0); EOS % 1.6 % (0-4.5); HEMATOCRIT 34.3 % (32.4-45.2); HEMOGLOBIN 11.6 GM/dL (10.7-15.3); LYMPH % 18.5 % (8-40); MCH 27.8 pg (25.7-33.7); MCHC 33.7 g/dl (32.0-36.0); MEAN CELL VOLUME 82.4 fl (80-96); MEAN PLT VOLUME 8.3 fl (7.5-11.1); MONO % 5.3 % (3.8-10.2); NEUT % 74.4 % (42.8-82.8); PLATELET COUNT 225 K/MM3 (134-434); RBC 4.16 M/mm3 (3.60-5.2); WHITE BLOOD COUNT 6.1 K/mm3 (4.0-10.0)
[2020-09-15 07:24] LABS: BLOOD UREA NITROGEN 20.1 mg/dL (7-18); CALCIUM 8.2 mg/dL (8.5-10.1)
[2020-09-15 07:28] LABS: CREATININE 0.5 mg/dL (0.55-1.3)
[2020-09-15 07:29] LABS: BILIRUBIN,TOTAL 0.4 mg/dL (0.2-1); TOT PROT 5.7 g/dl (6.4-8.2)
[2020-09-15] MEDS: amLODIPine BESYLATE 5 MG TABLET (FP) PO SCH (10:15)
[2020-09-15] MEDS: PANTOPRAZOLE 40 MG TABLET PO SCH (10:15)
[2020-09-15] MEDS: ATORVASTATIN CA 10 MG TABLET (FP) PO SCH (10:15)
[2020-09-15] MEDS: ASPIRIN 81 MG CHEWABLE TABLETS PO SCH (10:15)
[2020-09-15] MEDS: PARoxetine HCL 10 MG TABLET PO SCH (10:15)
[2020-09-15] MEDS: RAMIPRIL 5 MG CAPSULE PO SCH (10:15)
[2020-09-15] MEDS: ENOXAPARIN NA (PORCINE) 40 MG/0.4 ML DISP.SYRIN SQ SCH (10:15)
[2020-09-15] MEDS: clonazePAM 0.5 MG TABLET PO SCH ×2 (10:16→21:29)
[2020-09-15] MEDS: ACETAMINOPHEN 325 MG TABLET (FP) PO PRN (19:16)
[2020-09-15] MEDS: QUEtiapine FUMARATE 50 MG TABLET PO SCH (21:29)
[2020-09-16 07:07] LABS: HEMATOCRIT 32.3 % (32.4-45.2); HEMOGLOBIN 10.8 GM/dL (10.7-15.3); MCH 27.4 pg (25.7-33.7); MCHC 33.5 g/dl (32.0-36.0); MEAN CELL VOLUME 81.8 fl (80-96); MEAN PLT VOLUME 8.2 fl (7.5-11.1); PLATELET COUNT 224 K/MM3 (134-434); RBC 3.95 M/mm3 (3.60-5.2); RDW 15.6 % (11.6-15.6); WHITE BLOOD COUNT 5.7 K/mm3 (4.0-10.0)
[2020-09-16 07:33] LABS: POTASSIUM 4.1 mmol/L (3.5-5.1)
[2020-09-16 07:46] LABS: ALBUMIN 2.8 g/dl (3.4-5.0); BILIRUBIN,TOTAL 0.5 mg/dL (0.2-1); TOT PROT 5.5 g/dl (6.4-8.2)
[2020-09-16 07:47] LABS: CALCIUM 8.2 mg/dL (8.5-10.1)
[2020-09-16 07:48] LABS: BLOOD UREA NITROGEN 20.1 mg/dL (7-18)
[2020-09-16 07:49] LABS: CREATININE 0.6 mg/dL (0.55-1.3)
[2020-09-16] MEDS: ATORVASTATIN CA 10 MG TABLET (FP) PO SCH (09:58)
[2020-09-16] MEDS: ENOXAPARIN NA (PORCINE) 40 MG/0.4 ML DISP.SYRIN SQ SCH (09:58)
[2020-09-16] MEDS: amLODIPine BESYLATE 5 MG TABLET (FP) PO SCH (09:59)
[2020-09-16] MEDS: clonazePAM 0.5 MG TABLET PO SCH ×2 (10:00→22:03)
[2020-09-16] MEDS: ASPIRIN 81 MG CHEWABLE TABLETS PO SCH (10:00)
[2020-09-16] MEDS: RAMIPRIL 5 MG CAPSULE PO SCH (10:00)
[2020-09-16] MEDS: PARoxetine HCL 10 MG TABLET PO SCH (10:00)
[2020-09-16] MEDS: PANTOPRAZOLE 40 MG TABLET PO SCH (10:00)
[2020-09-16] MEDS: QUEtiapine FUMARATE 50 MG TABLET PO SCH (22:03)
[2020-09-17] MEDS ORDERED: BENZOCAINE/MENTH/CETYLPYRD CL 1 EACH LOZENGE MM PRN (02:56)
[2020-09-17 06:40] LABS: HEMATOCRIT 32.8 % (32.4-45.2); HEMOGLOBIN 10.9 GM/dL (10.7-15.3); MCH 27.3 pg (25.7-33.7); MCHC 33.1 g/dl (32.0-36.0); MEAN CELL VOLUME 82.4 fl (80-96); MEAN PLT VOLUME 8.4 fl (7.5-11.1); PLATELET COUNT 208 K/MM3 (134-434); RBC 3.98 M/mm3 (3.60-5.2); RDW 15.8 % (11.6-15.6); WHITE BLOOD COUNT 5.7 K/mm3 (4.0-10.0)
[2020-09-17 07:06] LABS: CALCIUM 8.4 mg/dL (8.5-10.1)
[2020-09-17 07:07] LABS: BLOOD UREA NITROGEN 14.7 mg/dL (7-18)
[2020-09-17 07:10] LABS: CREATININE 0.5 mg/dL (0.55-1.3)
[2020-09-17] MEDS: amLODIPine BESYLATE 5 MG TABLET (FP) PO SCH (09:33)
[2020-09-17] MEDS: PANTOPRAZOLE 40 MG TABLET PO SCH (09:33)
[2020-09-17] MEDS: clonazePAM 0.5 MG TABLET PO SCH ×2 (09:33→21:44)
[2020-09-17] MEDS: PARoxetine HCL 10 MG TABLET PO SCH (09:33)
[2020-09-17] MEDS: ENOXAPARIN NA (PORCINE) 40 MG/0.4 ML DISP.SYRIN SQ SCH (09:33)
[2020-09-17] MEDS: ATORVASTATIN CA 10 MG TABLET (FP) PO SCH (09:33)
[2020-09-17] MEDS: RAMIPRIL 5 MG CAPSULE PO SCH (09:34)
[2020-09-17 14:17] VITALS: BMI 30.1
[2020-09-17] MEDS: ACETAMINOPHEN 325 MG TABLET (FP) PO PRN ×2 (15:28→21:44)
[2020-09-17] MEDS ORDERED: PT OWN MED DRAWER 7, Y5N ONE (18:23)
[2020-09-17] MEDS ORDERED: QUEtiapine FUMARATE 25 MG TABLET ONE (21:33)
[2020-09-17] MEDS: QUEtiapine FUMARATE 100 MG TABLET (FP) PO SCH (21:49)
[2020-09-18 07:16] LABS: HEMATOCRIT 33.7 % (32.4-45.2); HEMOGLOBIN 11.1 GM/dL (10.7-15.3); MCH 27.2 pg (25.7-33.7); MCHC 33.1 g/dl (32.0-36.0); MEAN CELL VOLUME 82.4 fl (80-96); MEAN PLT VOLUME 8.4 fl (7.5-11.1); PLATELET COUNT 213 K/MM3 (134-434); RBC 4.09 M/mm3 (3.60-5.2); RDW 16.2 % (11.6-15.6); WHITE BLOOD COUNT 5.5 K/mm3 (4.0-10.0)
[2020-09-18 07:42] LABS: POTASSIUM 4.3 mmol/L (3.5-5.1)
[2020-09-18 07:43] LABS: CALCIUM 8.6 mg/dL (8.5-10.1)
[2020-09-18 07:44] LABS: BLOOD UREA NITROGEN 12.3 mg/dL (7-18)
[2020-09-18 07:47] LABS: CREATININE 0.6 mg/dL (0.55-1.3)
[2020-09-18] MEDS: PARoxetine HCL 10 MG TABLET PO SCH (10:00)
[2020-09-18] MEDS: ENOXAPARIN NA (PORCINE) 40 MG/0.4 ML DISP.SYRIN SQ SCH (10:00)
[2020-09-18] MEDS: PANTOPRAZOLE 40 MG TABLET PO SCH (10:00)
[2020-09-18] MEDS: RAMIPRIL 5 MG CAPSULE PO SCH (10:00)
[2020-09-18] MEDS: ATORVASTATIN CA 10 MG TABLET (FP) PO SCH (10:00)
[2020-09-18] MEDS: clonazePAM 0.5 MG TABLET PO SCH ×2 (10:00→21:17)
[2020-09-18] MEDS: amLODIPine BESYLATE 5 MG TABLET (FP) PO SCH (10:01)
[2020-09-18] MEDS: ACETAMINOPHEN 325 MG TABLET (FP) PO PRN ×2 (10:08→21:17)
[2020-09-18] MEDS: QUEtiapine FUMARATE 100 MG TABLET (FP) PO SCH (21:17)
[2020-09-18] MEDS: MECLIZINE HCL 12.5 MG TABLET PO PRN (22:49)
[2020-09-19] MEDS ORDERED: PT OWN MED DRAWER 7, Y5N ONE (09:17)
[2020-09-19] MEDS: clonazePAM 0.5 MG TABLET PO SCH ×2 (09:20→21:45)
[2020-09-19] MEDS: amLODIPine BESYLATE 5 MG TABLET (FP) PO SCH (09:20)
[2020-09-19] MEDS: PARoxetine HCL 10 MG TABLET PO SCH (09:20)
[2020-09-19] MEDS: RAMIPRIL 5 MG CAPSULE PO SCH (09:20)
[2020-09-19] MEDS: PANTOPRAZOLE 40 MG TABLET PO SCH (09:21)
[2020-09-19] MEDS: ENOXAPARIN NA (PORCINE) 40 MG/0.4 ML DISP.SYRIN SQ SCH (09:21)
[2020-09-19] MEDS: ATORVASTATIN CA 10 MG TABLET (FP) PO SCH (13:31)
[2020-09-19] MEDS: ACETAMINOPHEN 325 MG TABLET (FP) PO PRN ×2 (13:31→21:47)
[2020-09-19] MEDS: MECLIZINE HCL 12.5 MG TABLET PO PRN (15:25)
[2020-09-19] MEDS: QUEtiapine FUMARATE 100 MG TABLET (FP) PO SCH (21:45)
[2020-09-19] MEDS ORDERED: ALBUTEROL SO4 0.083% IH SOL 2.5 MG/3 ML VIAL.NEB. NEB PRN (22:18)
[2020-09-20 07:24] LABS: BASO % 0.2 % (0-2.0); EOS % 11.2 % (0-4.5); HEMATOCRIT 30.7 % (32.4-45.2); HEMOGLOBIN 10.3 GM/dL (10.7-15.3); MCH 27.6 pg (25.7-33.7); MCHC 33.5 g/dl (32.0-36.0); MEAN CELL VOLUME 82.4 fl (80-96); MEAN PLT VOLUME 8.3 fl (7.5-11.1); MONO % 5.4 % (3.8-10.2); NEUT % 65.2 % (42.8-82.8); PLATELET COUNT 203 K/MM3 (134-434); RBC 3.73 M/mm3 (3.60-5.2)
[2020-09-20 07:28] LABS: POTASSIUM 4.1 mmol/L (3.5-5.1)
[2020-09-20 07:30] LABS: CALCIUM 8.2 mg/dL (8.5-10.1)
[2020-09-20 07:31] LABS: ALBUMIN 2.6 g/dl (3.4-5.0); BLOOD UREA NITROGEN 11.6 mg/dL (7-18)
[2020-09-20 07:34] LABS: CREATININE 0.6 mg/dL (0.55-1.3)
[2020-09-20 07:35] LABS: BILIRUBIN,TOTAL 0.2 mg/dL (0.2-1)
[2020-09-20] MEDS: PANTOPRAZOLE 40 MG TABLET PO SCH (09:12)
[2020-09-20] MEDS: clonazePAM 0.5 MG TABLET PO SCH ×2 (09:12→21:19)
[2020-09-20] MEDS: PARoxetine HCL 10 MG TABLET PO SCH (09:12)
[2020-09-20] MEDS: ATORVASTATIN CA 10 MG TABLET (FP) PO SCH (09:13)
[2020-09-20] MEDS: amLODIPine BESYLATE 5 MG TABLET (FP) PO SCH (09:13)
[2020-09-20] MEDS: ENOXAPARIN NA (PORCINE) 40 MG/0.4 ML DISP.SYRIN SQ SCH (09:14)
[2020-09-20] MEDS: RAMIPRIL 5 MG CAPSULE PO SCH (09:14)
[2020-09-20] MEDS: MECLIZINE HCL 12.5 MG TABLET PO PRN (15:21)
[2020-09-20] MEDS: ACETAMINOPHEN 325 MG TABLET (FP) PO PRN ×2 (17:35→21:19)
[2020-09-20] MEDS: QUEtiapine FUMARATE 100 MG TABLET (FP) PO SCH (21:19)
[2020-09-21 06:40] LABS: HEMATOCRIT 31.3 % (32.4-45.2); HEMOGLOBIN 10.4 GM/dL (10.7-15.3); MCH 27.6 pg (25.7-33.7); MCHC 33.3 g/dl (32.0-36.0); MEAN CELL VOLUME 82.9 fl (80-96); MEAN PLT VOLUME 8.3 fl (7.5-11.1); PLATELET COUNT 198 K/MM3 (134-434); RBC 3.78 M/mm3 (3.60-5.2); RDW 16.3 % (11.6-15.6); WHITE BLOOD COUNT 6.6 K/mm3 (4.0-10.0)
[2020-09-21 07:00] LABS: CALCIUM 8.6 mg/dL (8.5-10.1)
[2020-09-21 07:04] LABS: CREATININE 0.4 mg/dL (0.55-1.3)
[2020-09-21] MEDS: amLODIPine BESYLATE 5 MG TABLET (FP) PO SCH (09:09)
[2020-09-21] MEDS: ATORVASTATIN CA 10 MG TABLET (FP) PO SCH (09:09)
[2020-09-21] MEDS: ASPIRIN 81 MG CHEWABLE TABLETS PO SCH (09:09)
[2020-09-21] MEDS: PANTOPRAZOLE 40 MG TABLET PO SCH (09:10)
[2020-09-21] MEDS: PARoxetine HCL 10 MG TABLET PO SCH (09:10)
[2020-09-21] MEDS: RAMIPRIL 5 MG CAPSULE PO SCH (09:10)
[2020-09-21] MEDS: ACETAMINOPHEN 325 MG TABLET (FP) PO PRN (18:18)
[2020-09-21] MEDS ORDERED: clonazePAM 0.5 MG TABLET PO PRN (19:19)
[2020-09-21] MEDS: QUEtiapine FUMARATE 100 MG TABLET (FP) PO SCH (21:15)
[2020-09-22 07:23] LABS: HEMATOCRIT 31.6 % (32.4-45.2); HEMOGLOBIN 10.4 GM/dL (10.7-15.3); MCH 27.6 pg (25.7-33.7); MCHC 33.1 g/dl (32.0-36.0); MEAN CELL VOLUME 83.4 fl (80-96); MEAN PLT VOLUME 8.3 fl (7.5-11.1); PLATELET COUNT 196 K/MM3 (134-434); RBC 3.79 M/mm3 (3.60-5.2); WHITE BLOOD COUNT 6.5 K/mm3 (4.0-10.0)
[2020-09-22 07:40] LABS: POTASSIUM 4.2 mmol/L (3.5-5.1)
[2020-09-22 07:43] LABS: ALBUMIN 2.7 g/dl (3.4-5.0); BLOOD UREA NITROGEN 12.5 mg/dL (7-18)
[2020-09-22 07:44] LABS: CALCIUM 8.3 mg/dL (8.5-10.1)
[2020-09-22 07:46] LABS: CREATININE 0.6 mg/dL (0.55-1.3)
[2020-09-22 07:47] LABS: BILIRUBIN,TOTAL 0.2 mg/dL (0.2-1); TOT PROT 5.3 g/dl (6.4-8.2)
[2020-09-22] MEDS: amLODIPine BESYLATE 5 MG TABLET (FP) PO SCH (10:36)
[2020-09-22] MEDS: PANTOPRAZOLE 40 MG TABLET PO SCH (10:40)
[2020-09-22] MEDS: ASPIRIN 81 MG CHEWABLE TABLETS PO SCH (10:41)
[2020-09-22] MEDS: PARoxetine HCL 10 MG TABLET PO SCH (10:41)
[2020-09-22] MEDS: ATORVASTATIN CA 10 MG TABLET (FP) PO SCH (10:41)
[2020-09-22] MEDS: RAMIPRIL 5 MG CAPSULE PO SCH (10:42)
[2020-09-22 18:49] VITALS: TEMP 97.4
[2020-09-22] MEDS: QUEtiapine FUMARATE 100 MG TABLET (FP) PO SCH (21:18)
[2020-09-23 07:15] LABS: HEMATOCRIT 32.1 % (32.4-45.2); HEMOGLOBIN 10.5 GM/dL (10.7-15.3); MCH 27.3 pg (25.7-33.7); MCHC 32.7 g/dl (32.0-36.0); MEAN CELL VOLUME 83.4 fl (80-96); MEAN PLT VOLUME 8.4 fl (7.5-11.1); PLATELET COUNT 187 K/MM3 (134-434); RBC 3.85 M/mm3 (3.60-5.2); RDW 16.3 % (11.6-15.6); WHITE BLOOD COUNT 5.9 K/mm3 (4.0-10.0)
[2020-09-23 07:34] LABS: POTASSIUM 4.2 mmol/L (3.5-5.1)
[2020-09-23 07:43] LABS: BLOOD UREA NITROGEN 11.4 mg/dL (7-18); CALCIUM 8.9 mg/dL (8.5-10.1)
[2020-09-23 07:46] LABS: CREATININE 0.6 mg/dL (0.55-1.3)
[2020-09-23 08:19] VITALS: BP 100/40; PULSE 85
[2020-09-23] MEDS ORDERED: PT OWN MED DRAWER 7, Y5N ONE (09:20)
[2020-09-23] MEDS: PARoxetine HCL 10 MG TABLET PO SCH (09:22)
[2020-09-23] MEDS: ASPIRIN 81 MG CHEWABLE TABLETS PO SCH (09:22)
[2020-09-23] MEDS: ATORVASTATIN CA 10 MG TABLET (FP) PO SCH (09:22)
[2020-09-23] MEDS: amLODIPine BESYLATE 5 MG TABLET (FP) PO SCH (09:22)
[2020-09-23] MEDS: PANTOPRAZOLE 40 MG TABLET PO SCH (09:22)
[2020-09-23] MEDS: RAMIPRIL 5 MG CAPSULE PO SCH (09:22)
== END 2020-09-23 12:45 | disposition home or self-care (01) | DRG 200 ==
LOC: JRADIR 04:25 → JASUSAT 04:25 → J6S 14:34 → JASUSAT 14:35 → JICU 09-14 04:55
PROVIDERS: ADMIT Internal Medicine; ATTEND Internal Medicine
PROC: 0BBG3ZX Excision of Left Upper Lung Lobe, Percutaneous Approach, Diagnostic (ICD-10-PCS; 2020-09-07)
PROC: 0W9B30Z Drainage of Left Pleural Cavity with Drainage Device, Percutaneous Approach (ICD-10-PCS; principal; 2020-09-14)
DX: J95.811 Postprocedural pneumothorax (principal); I50.32 Chronic diastolic (congestive) heart failure; C34.12 Malignant neoplasm of upper lobe, left bronchus or lung; T81.82XA Emphysema (subcutaneous) resulting from a procedure, initial encounter; R09.02 Hypoxemia; I10 Essential (primary) hypertension; K21.9 Gastro-esophageal reflux disease without esophagitis; J44.9 Chronic obstructive pulmonary disease, unspecified; F41.9 Anxiety disorder, unspecified; I25.10 Atherosclerotic heart disease of native coronary artery without angina pectoris; E78.5 Hyperlipidemia, unspecified; Y83.9 Surgical procedure, unspecified as the cause of abnormal reaction of the patient, or of later complication, without mention of misadventure at the time of the procedure
CPT/HCPCS: 32408; 32557; 36415; 70490-TC; 71045-TC-FY; 71046-TC-FY; 71250-TC; 77012-TC; 80048; 80053; 85025; 85027; 88305-TC; 88341-TC; 88342-TC; 94010; 94640; 94761; 97116-GP; 97161-GP

== ENCOUNTER 2021-10-09 22:07 | Inpatient (IN) | payer BC ==
[2021-10-09 22:49] LABS: BASO % 0.2 % (0-2.0); EOS % 0.2 % (0-4.5); HEMATOCRIT 37.3 % (32.4-45.2); HEMOGLOBIN 12.5 GM/dL (10.7-15.3); LYMPH % 11.4 % (8-40); MCH 26.9 pg (25.7-33.7); MCHC 33.4 g/dl (32.0-36.0); MEAN CELL VOLUME 80.5 fl (80-96); MEAN PLT VOLUME 7.4 fl (7.5-11.1); MONO % 10.5 % (3.8-10.2); NEUT % 77.7 % (42.8-82.8); PLATELET COUNT 284 10^3/uL (134-434); RBC 4.63 M/mm3 (3.60-5.2); RDW 15.4 % (11.6-15.6); WHITE BLOOD COUNT 8.5 K/mm3 (4.0-10.0)
[2021-10-09 23:07] LABS: CHLORIDE 105 mmol/L (98-107); SODIUM 142 mmol/L (136-145)
[2021-10-09 23:09] LABS: CALCIUM 8.7 mg/dL (8.5-10.1)
[2021-10-09 23:10] LABS: ALBUMIN 3.4 g/dl (3.4-5.0); ANION GAP 10 MMOL/L (8-16); BLOOD UREA NITROGEN 15.2 mg/dL (7-18); CO2 27 mmol/L (21-32); GLUCOSE,RANDOM 123 mg/dL (74-106); MAGNESIUM 1.9 mg/dL (1.8-2.4)
[2021-10-09 23:13] LABS: CREATININE 0.8 mg/dL (0.55-1.3); PHOSPHOROUS 2.8 mg/dL (2.5-4.9); SGOT/AST 15 U/L (15-37); SGPT/ALT 10 U/L (13-61)
[2021-10-09 23:14] LABS: TOT PROT 6.9 g/dl (6.4-8.2)
[2021-10-09 23:15] LABS: BILIRUBIN,TOTAL 0.9 mg/dL (0.2-1)
[2021-10-09 23:16] LABS: ALK PHOS 82 U/L (45-117)
[2021-10-10] MEDS ORDERED: POTASSIUM CHLORIDE TABS 20 MEQ TABLET.ER (FP) PO ONE ×2 (01:14→02:49)
[2021-10-10] MEDS ORDERED: LACTATED RINGERS SOLUTION 1000 ML INFUS.BAG IV ONE (01:15)
[2021-10-10 03:58] LABS: INR 1.38 (0.83-1.09); PROTHROMBIN TIME (PATIENT) 15.9 SEC (9.7-13.0)
[2021-10-10 04:01] LABS: ACTIVATED PTT 29.1 SECONDS (25.2-36.5)
[2021-10-10] MEDS ORDERED: PARoxetine HCL 10 MG TABLET PO SCH (10:00)
[2021-10-10] MEDS: DEXTROSE 5%-0.45% SALINE 1,000 ML IV SCH (10:58)
[2021-10-10] MEDS: HEPARIN NA (PORCINE) 5,000 UNITS/ML 1ML VIAL SQ SCH ×2 (10:59→21:22)
[2021-10-10] MEDS: ASPIRIN 81 MG CHEWABLE TABLETS PO SCH (10:59)
[2021-10-10] MEDS: amLODIPine BESYLATE 5 MG TABLET (FP) PO SCH (10:59)
[2021-10-10] MEDS: PANTOPRAZOLE 40 MG TABLET PO SCH (10:59)
[2021-10-10] MEDS: clonazePAM 0.5 MG TABLET PO SCH ×2 (11:00→21:22)
[2021-10-10] MEDS: RAMIPRIL 5 MG CAPSULE PO SCH (11:10)
[2021-10-10 11:51] LABS: BASO % 0.9 % (0-2.0); EOS % 1.9 % (0-4.5); HEMOGLOBIN 11.6 GM/dL (10.7-15.3); LYMPH % 14.8 % (8-40); MCH 26.6 pg (25.7-33.7); MCHC 33.2 g/dl (32.0-36.0); MEAN CELL VOLUME 79.9 fl (80-96); MEAN PLT VOLUME 7.5 fl (7.5-11.1); MONO % 8.1 % (3.8-10.2); NEUT % 74.3 % (42.8-82.8); PLATELET COUNT 266 10^3/uL (134-434); RBC 4.37 M/mm3 (3.60-5.2); RDW 15.5 % (11.6-15.6); WHITE BLOOD COUNT 7.1 K/mm3 (4.0-10.0)
[2021-10-10 12:12] LABS: ALBUMIN 3.2 g/dl (3.4-5.0); BLOOD UREA NITROGEN 14.2 mg/dL (7-18); CALCIUM 8.6 mg/dL (8.5-10.1)
[2021-10-10 12:15] LABS: CREATININE 0.6 mg/dL (0.55-1.3)
[2021-10-10 18:57] LABS: URINE APPEARANCE CLEAR; URINE BILIRUBIN NEGATIVE (NEGATIVE); URINE COLOR DK YELLOW; URINE GLUCOSE (UA) NEGATIVE (NEGATIVE); URINE KETONE TRACE (NEGATIVE); URINE LEUK ESTERASE NEGATIVE (NEGATIVE); URINE NITRITE NEGATIVE (NEGATIVE); URINE PROTEIN TRACE (NEGATIVE)
[2021-10-10] MEDS ORDERED: ACETAMINOPHEN 1000 MG/100 ML BAG IVPB PRN (19:55)
[2021-10-10] MEDS: KCL 10 MEQ IVPB 10 MEQ/100 ML INFUS.BAG IVPB SCH ×2 (21:22→23:16)
[2021-10-10] MEDS: ATORVASTATIN CA 10 MG TABLET (FP) PO SCH (21:22)
[2021-10-10] MEDS ORDERED: MIRTAZAPINE 15 MG TABLET (FP) PO SCH (22:00)
[2021-10-11] MEDS: KCL 10 MEQ IVPB 10 MEQ/100 ML INFUS.BAG IVPB SCH ×4 (00:36→17:28)
[2021-10-11 08:59] LABS: BASO % 0.4 % (0-2.0); EOS % 3.4 % (0-4.5); HEMATOCRIT 33.9 % (32.4-45.2); HEMOGLOBIN 11.3 GM/dL (10.7-15.3); LYMPH % 9.6 % (8-40); MCH 26.6 pg (25.7-33.7); MCHC 33.4 g/dl (32.0-36.0); MEAN CELL VOLUME 79.7 fl (80-96); MEAN PLT VOLUME 7.9 fl (7.5-11.1); MONO % 6.9 % (3.8-10.2); NEUT % 79.7 % (42.8-82.8); PLATELET COUNT 256 10^3/uL (134-434); RBC 4.26 M/mm3 (3.60-5.2); RDW 15.3 % (11.6-15.6)
[2021-10-11 09:29] LABS: CALCIUM 8.5 mg/dL (8.5-10.1)
[2021-10-11 09:30] LABS: BLOOD UREA NITROGEN 8.2 mg/dL (7-18)
[2021-10-11 09:31] LABS: CREATININE 0.5 mg/dL (0.55-1.3)
[2021-10-11 09:33] LABS: BILIRUBIN,TOTAL 0.7 mg/dL (0.2-1)
[2021-10-11] MEDS: amLODIPine BESYLATE 5 MG TABLET (FP) PO SCH (10:23)
[2021-10-11] MEDS: PANTOPRAZOLE 40 MG TABLET PO SCH (10:23)
[2021-10-11] MEDS: ASPIRIN 81 MG CHEWABLE TABLETS PO SCH (10:23)
[2021-10-11] MEDS: RAMIPRIL 5 MG CAPSULE PO SCH (10:23)
[2021-10-11] MEDS: DEXTROSE 5%-0.45% SALINE 1,000 ML IV SCH (10:23)
[2021-10-11] MEDS: clonazePAM 0.5 MG TABLET PO SCH (10:23)
[2021-10-11] MEDS: HEPARIN NA (PORCINE) 5,000 UNITS/ML 1ML VIAL SQ SCH ×2 (10:24→21:35)
[2021-10-11] MEDS: ATORVASTATIN CA 10 MG TABLET (FP) PO SCH (23:46)
[2021-10-12] MEDS: DEXTROSE 5%-0.45% SALINE 1,000 ML IV SCH ×2 (06:07→16:57)
[2021-10-12 08:58] LABS: BASO % 0.4 % (0-2.0); EOS % 5.4 % (0-4.5); HEMATOCRIT 30.9 % (32.4-45.2); HEMOGLOBIN 10.2 GM/dL (10.7-15.3); LYMPH % 15.2 % (8-40); MCH 26.9 pg (25.7-33.7); MCHC 33.1 g/dl (32.0-36.0); MEAN CELL VOLUME 81.1 fl (80-96); MEAN PLT VOLUME 7.9 fl (7.5-11.1); MONO % 9.2 % (3.8-10.2); NEUT % 69.8 % (42.8-82.8); PLATELET COUNT 232 10^3/uL (134-434); RBC 3.81 M/mm3 (3.60-5.2); RDW 15.3 % (11.6-15.6); WHITE BLOOD COUNT 6.5 K/mm3 (4.0-10.0)
[2021-10-12 09:25] LABS: ALBUMIN 2.6 g/dl (3.4-5.0); BLOOD UREA NITROGEN 6.2 mg/dL (7-18)
[2021-10-12 09:27] LABS: CREATININE 0.4 mg/dL (0.55-1.3)
[2021-10-12 09:29] LABS: BILIRUBIN,TOTAL 0.8 mg/dL (0.2-1); TOT PROT 5.4 g/dl (6.4-8.2)
[2021-10-12] MEDS: HEPARIN NA (PORCINE) 5,000 UNITS/ML 1ML VIAL SQ SCH ×2 (10:41→21:25)
[2021-10-12] MEDS ORDERED: ALBUTEROL SO4 2.5/IPRATROPIUM 0.5 INH SOL 3 ML VIAL.NEB. NEB PRN (10:57)
[2021-10-12] MEDS: RAMIPRIL 5 MG CAPSULE PO SCH (11:33)
[2021-10-12] MEDS: amLODIPine BESYLATE 5 MG TABLET (FP) PO SCH (11:33)
[2021-10-12] MEDS: ASPIRIN 81 MG CHEWABLE TABLETS PO SCH (11:33)
[2021-10-12] MEDS: PANTOPRAZOLE 40 MG TABLET PO SCH (11:33)
[2021-10-12] MEDS: BUDESONIDE/FORMETEROL FUMARATE 160/4.5 mcg INHALER IH SCH ×2 (13:05→21:24)
[2021-10-12] MEDS: NYSTATIN 100,000 UNIT/GM TOPICAL CREAM 15 GM TUBE TP SCH ×2 (13:05→21:24)
[2021-10-12] MEDS: KCL 10 MEQ IVPB 10 MEQ/100 ML INFUS.BAG IVPB SCH ×3 (16:49→19:02)
[2021-10-12] MEDS: ATORVASTATIN CA 10 MG TABLET (FP) PO SCH (21:25)
[2021-10-13 09:09] LABS: BASO % 0.4 % (0-2.0); EOS % 4.9 % (0-4.5); HEMATOCRIT 30.2 % (32.4-45.2); LYMPH % 17.1 % (8-40); MCH 26.4 pg (25.7-33.7); MCHC 33.1 g/dl (32.0-36.0); MEAN CELL VOLUME 79.8 fl (80-96); MONO % 9.7 % (3.8-10.2); NEUT % 67.9 % (42.8-82.8); PLATELET COUNT 237 10^3/uL (134-434); RBC 3.79 M/mm3 (3.60-5.2); RDW 15.1 % (11.6-15.6); WHITE BLOOD COUNT 5.7 K/mm3 (4.0-10.0)
[2021-10-13 09:32] LABS: ALBUMIN 2.2 g/dl (3.4-5.0); BLOOD UREA NITROGEN 7.8 mg/dL (7-18)
[2021-10-13 09:35] LABS: CREATININE 0.5 mg/dL (0.55-1.3)
[2021-10-13 09:37] LABS: BILIRUBIN,TOTAL 0.5 mg/dL (0.2-1); TOT PROT 5.1 g/dl (6.4-8.2)
[2021-10-13] MEDS: amLODIPine BESYLATE 5 MG TABLET (FP) PO SCH (09:40)
[2021-10-13] MEDS: DEXTROSE 5%-0.45% SALINE 1,000 ML IV SCH (09:40)
[2021-10-13] MEDS: ASPIRIN 81 MG CHEWABLE TABLETS PO SCH (09:40)
[2021-10-13] MEDS: PANTOPRAZOLE 40 MG TABLET PO SCH (09:40)
[2021-10-13] MEDS: HEPARIN NA (PORCINE) 5,000 UNITS/ML 1ML VIAL SQ SCH ×2 (09:40→21:40)
[2021-10-13] MEDS: BUDESONIDE/FORMETEROL FUMARATE 160/4.5 mcg INHALER IH SCH ×2 (09:41→21:41)
[2021-10-13] MEDS: RAMIPRIL 5 MG CAPSULE PO SCH (09:41)
[2021-10-13] MEDS: NYSTATIN 100,000 UNIT/GM TOPICAL CREAM 15 GM TUBE TP SCH ×2 (09:42→21:41)
[2021-10-13] MEDS: ATORVASTATIN CA 10 MG TABLET (FP) PO SCH (21:40)
[2021-10-13 23:23] VITALS: BMI 30.2
[2021-10-14] MEDS: RAMIPRIL 5 MG CAPSULE PO SCH (10:37)
[2021-10-14] MEDS: PANTOPRAZOLE 40 MG TABLET PO SCH (10:37)
[2021-10-14] MEDS: amLODIPine BESYLATE 5 MG TABLET (FP) PO SCH (10:37)
[2021-10-14] MEDS: ASPIRIN 81 MG CHEWABLE TABLETS PO SCH (10:37)
[2021-10-14] MEDS: MULTIVITAMINS (DAILY MVI) TABLET (FP) PO SCH (10:37)
[2021-10-14] MEDS: HEPARIN NA (PORCINE) 5,000 UNITS/ML 1ML VIAL SQ SCH ×2 (10:37→21:42)
[2021-10-14] MEDS: NYSTATIN 100,000 UNIT/GM TOPICAL CREAM 15 GM TUBE TP SCH ×2 (10:38→21:43)
[2021-10-14] MEDS: BUDESONIDE/FORMETEROL FUMARATE 160/4.5 mcg INHALER IH SCH ×2 (10:38→21:43)
[2021-10-14] MEDS ORDERED: ALPRAZolam 1 MG TABLET PO SCH (17:00)
[2021-10-14] MEDS: ALPRAZolam 0.25 MG TABLET PO SCH (18:32)
[2021-10-14] MEDS: AMOX TR/POT CLAV 500MG/125MG TABLETS (FP) PO SCH (19:49)
[2021-10-14] MEDS: ATORVASTATIN CA 10 MG TABLET (FP) PO SCH (21:42)
[2021-10-15] MEDS: ALPRAZolam 0.25 MG TABLET PO SCH (06:07)
[2021-10-15] MEDS: AMOX TR/POT CLAV 500MG/125MG TABLETS (FP) PO SCH (10:26)
[2021-10-15] MEDS: PANTOPRAZOLE 40 MG TABLET PO SCH (10:26)
[2021-10-15] MEDS: RAMIPRIL 5 MG CAPSULE PO SCH (10:26)
[2021-10-15] MEDS: amLODIPine BESYLATE 5 MG TABLET (FP) PO SCH (10:27)
[2021-10-15] MEDS: BUDESONIDE/FORMETEROL FUMARATE 160/4.5 mcg INHALER IH SCH (10:27)
[2021-10-15] MEDS: ASPIRIN 81 MG CHEWABLE TABLETS PO SCH (10:27)
[2021-10-15] MEDS: NYSTATIN 100,000 UNIT/GM TOPICAL CREAM 15 GM TUBE TP SCH (10:27)
[2021-10-15] MEDS: HEPARIN NA (PORCINE) 5,000 UNITS/ML 1ML VIAL SQ SCH (10:27)
[2021-10-15] MEDS: MULTIVITAMINS (DAILY MVI) TABLET (FP) PO SCH (10:27)
[2021-10-15 14:36] VITALS: BP 109/50; PULSE 76; TEMP 98
== END 2021-10-15 15:42 | DRG 92 ==
LOC: JER 22:07 → JERBED 10-10 01:22 → J6S 10-10 04:18
PROVIDERS: ADMIT Internal Medicine; ATTEND Internal Medicine
DX: G92.8 Other toxic encephalopathy (principal); I50.32 Chronic diastolic (congestive) heart failure; C34.90 Malignant neoplasm of unspecified part of unspecified bronchus or lung; N39.0 Urinary tract infection, site not specified; E86.0 Dehydration; E87.6 Hypokalemia; G70.00 Myasthenia gravis without (acute) exacerbation; F41.9 Anxiety disorder, unspecified; F32.9 Major depressive disorder, single episode, unspecified; J44.9 Chronic obstructive pulmonary disease, unspecified; I25.10 Atherosclerotic heart disease of native coronary artery without angina pectoris; I11.0 Hypertensive heart disease with heart failure; K21.9 Gastro-esophageal reflux disease without esophagitis; D50.9 Iron deficiency anemia, unspecified; R33.8 Other retention of urine; T42.4X5A Adverse effect of benzodiazepines, initial encounter
CPT/HCPCS: 36415; 70450-TC; 70551-TC; 71045-TC-FY; 71250-TC; 72125-TC; 72148-TC; 73030-TC-LT-FY; 73030-TC-RT-FY; 73110-TC-LT-FY; 73130-TC-LT-FY; 76775-TC; 80053; 81003; 82550; 82553; 82607; 82728; 82747; 83540; 83550; 83735; 84100; 84439; 84443; 84484; 85014; 85025; 85610; 85730; 86850; 86900; 86901; 87086; 93005; 93010; 93880-TC; 94640; 97116-GP; 97162-GP; 99285-25; C9803-CS; J1644; U0003; U0005